=== PATIENT | female | born 1990 | race Two or more races ===

== ENCOUNTER 2024-10-13 18:49 | Inpatient (IN) | payer MEDICAID, OTHER ==
[~2024-10-13] VITALS: Ht 152.4 cm; Wt 56.4 kg
--- NOTE | 2024-10-13 19:04 | ED.PDOC ---
HPI Comments HPI: Poor Historian. 34-year-old female alcoholic presents to emergency department for evaluation midsternal chest heaviness nonradiating constant. She said this started after she stopped drinking alcohol at 1:00 a.m. this afternoon. She typically drinks 750 cc of hard liquor daily. Patient left a detox facility approximately a week ago after she relapsed five days into the program. Patient had associated nausea and vomiting yellow in color. Denies any other acute symptoms. Patient feels like she is going to have a seizure from withdrawal. VITALS: Temp: 98.4 F RR: 18 02 sat : 97 % on room air HR: 94 BP: 140/97 PMH: denies PSH: denies Social history: denies tobacco use, endorses heavy ETOH use, denies drug use Medications: denies Allergies: denies REVIEW OF SYSTEMS: CONSTITUTIONAL: Denies acute: fever, diaphoresis, chills, HEAD: Denies acute: headache, photophobia Eyes: Denies acute: Double vision, vision loss, eye pain, eye discharge. EARS: Denies acute: tinnitus, hearing loss, ear discharge, ear pain, THROAT: Denies acute: sore throat, swelling, difficulty swallowing , pain with swallowing, change in voice. NECK: Denies acute: neck pain, neck swelling, stiff neck. HEART: Denies acute : palpitations, LUNGS: Denies acute: SOB, wheezing, cough, hemoptysis ABDOMEN: Denies acute: abdominal pain, diarrhea, melena , hematemesis, hematochezia SKIN: Denies acute: rash, redness, lesions, itchiness. EXTREMITIES: Denies acute: calf pain, numbness, tingling, weakness, denies pain in extremity. Denies acute: Low back pain. Neuro: Denies acute: focal neurological deficit, motor or sensory focal neurological deficit, tremors, seizure like activity, confusion, dizziness, change in mental status, loss of bowel or bladder function, cauda equina like symptoms. : Denies acute: dysuria, hematuria, flank pain, increase in urinary frequency. PSYCH: Denies acute: hallucination, suicidal ideation, homicidal ideation. FEMALE: Denies acute: abnormal vaginal bleeding, foul odor, unusual discharge. PHYSICAL EXAM: General: Mild to moderate acute distress, awake and alert. Head: normocephalic, atraumatic. Neck: supple, trachea is midline, no swelling. Throat: Normal phonation. Eyes:, no erythema, no purulent discharge, no proptosis, no icterus. Heart: regular tachycardic, no significant murmur appreciated. Lungs: no apparent respiratory distress, Able to speak in full sentences. No wheezing, no rhonchi, no crackles. No stridors Clear to auscultation bilaterally. Abdomen: non tender to palpation, non distended, soft, no guarding, no rebound, + bowel sounds. Neuro: Awake, Alert, oriented to name, self, situation, follows commands GCS=15. Speech is normal. Skin: no petechia, no purpura, no cyanosis, non-pale, not jaundice. Lower extremities: --no - Pitting edema no deformity, no focal swelling, no calf TTP. Makes eye contact. moves all four extremities. Face: no apparent facial droop. Ambulating in the ED independently. 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 Was a procedure done?: No X-Ray, Labs, Meds, VS Vital Signs Date Time Temp Pulse Resp B/P (MAP) Pulse Ox O2 Delivery O2 Flow Rate FiO2 10/13/24 19:39 79 10/13/24 19:04 98.4 94 18 140/97 (111) 97 10/13/24 18:57 97 Lab Test 10/13/24 19:49 10/13/24 18:57 Range/Units Troponin I High Sensitivity < 3 L < 3 L </=34 ng/L White Blood Count 12.3 H 4.4-10.8 10^3/uL Red Blood Count 4.19 4.0-5.20 10^6/uL Hemoglobin 14.6 12.2-16.2 g/dL Hematocrit 43.5 36.0-46.0 % Mean Corpuscular Volume 103.9 H 80.0-100.0 fL Mean Corpuscular Hemoglobin 34.7 H 28.0-32.0 pg Mean Corpuscular Hemoglobin Concent 33.4 32.0-36.0 g/dL Red Cell Distribution Width 14.6 H 11.8-14.3 % Platelet Count 358 140-450 10^3/uL Mean Platelet Volume 8.4 6.9-10.8 fL Neutrophils (%) (Auto) 87.8 H 37.0-80.0 % Lymphocytes (%) (Auto) 5.9 L 10.0-50.0 % Monocytes (%) (Auto) 5.9 0.0-12.0 % Eosinophils (%) (Auto) 0.1 0.0-7.0 % Basophils (%) (Auto) 0.3 0.0-2.0 % Neutrophils # (Auto) 10.8 H 1.6-8.6 10 ^3/uL Lymphocytes # (Auto) 0.7 0.4-5.4 10 ^3/uL Monocytes # (Auto) 0.7 0-1.3 10 ^3/uL Eosinophils # (Auto) 0 0-0.8 10 ^3/uL Basophils # (Auto) 0 0-0.2 10 ^3/uL Nucleated Red Blood Cells 0.1 % Sodium Level 143 136-145 mmol/L Potassium Level 4.0 3.5-5.1 mmol/L Chloride Level 107 98-107 mmol/L Carbon Dioxide Level 21 20-31 mmol/L Anion Gap 15 5-15 Blood Urea Nitrogen 8 L 9-23 mg/dL Creatinine 0.77 0.550-1.02 mg/dL Glomerular Filtration Rate Calc 105 >90 mL/min BUN/Creatinine Ratio 10.4 10.0-20.0 Serum Glucose 135 H 74-106 mg/dL Lactic Acid Level 2.5 *H 0.4-2.0 mmol/L Calcium Level 9.9 8.7-10.4 mg/dL Magnesium Level 2.0 1.6-2.6 mg/dL Total Bilirubin 0.4 0.2-1.0 mg/dL Aspartate Amino Transferase (AST) 84 H 13-40 U/L Alanine Aminotransferase (ALT) 185 H 7-40 U/L Alkaline Phosphatase 109 46-116 U/L Total Protein 8.0 5.7-8.2 g/dL Albumin 5.0 H 3.2-4.8 g/dL Lipase 45 12-53 U/L Beta HCG, Quantitative 1.4 L 1.5-4.2 mIU/mL Plasma/Serum Blood Alcohol 122.6 H <10 mg/dL Current Medications Medications (Trade) Dose Ordered Sig/Marian Route Start Time Stop Time Status Last Admin Sodium Chloride 1,000 ml @ 1,000 mls/hr Q1H ONCE IV 10/13/24 19:15 10/13/24 20:14 DC 10/13/24 19:15 Lorazepam (Ativan Inj) 1 mg ONCE ONCE IV 10/13/24 19:15 10/13/24 19:16 DC 10/13/24 20:59 Ondansetron HCl (Zofran) 8 mg ONCE ONCE IV 10/13/24 19:15 10/13/24 19:16 DC 10/13/24 21:03 [place] [id number] Ph: [phone] DIAGNOSTIC IMAGING Diagnostic Imaging Report : [id number] Signed PATIENT: GALEN GARCIA MACCT: [id number] UNIT: [id number] : 1990 LOC: ER ROOM / BED: / AGE / SEX: 34 / F ADM STATUS: REG ER SERVICE 52 ORDERING PHYSICIAN: FAN CATHERINE DO PROCEDURE(s): CXRP - CHEST PORTABLE REASON: CP ORDER NUMBER(s): [id number], ACCESSION NUMBER(s): [id number] CHEST RADIOGRAPH Indication: CP Technique: Single frontal view of the chest was obtained Comparison: None FINDINGS: Lines and Tubes: None Lungs: No focal consolidation. Pleura: No effusion. No pneumothorax. Cardiomediastinal contours: Unremarkable Bones: No acute osseous abnormality. IMPRESSION: No acute cardiopulmonary disease. ATED BY: LAUREN CHO DO DICTATED DATE/TIME: 10/13/241927 SIGNED BY: LAUREN CHO DO SIGNED DATE/TIME: 10/13/241927 CC: Patient Education/Counseling: Diagnosis, Treatment Family Education/Counseling: No Family Present Comments MDM: Patient presented with the above HPI.----- ETOH abuse -workup was initiated. patient was found with the above mentioned diagnosis. the following medications were ordered: Zofran, Ativan, IV fluids, the following tests were ordered: blood alcohol, beta HCG, magnesium, lipase, lactic acid, drug screen, EKG x 3, troponin x3, UA, CBC, CMP, chest x-ray, Patient ED course and VS have been stabilized. Patient has been reassessed in the ED and remained in a stable condition. Patient has been observed in the ED adequate length of time to insure improvement/stability. Escalation of care considered: Consideration of escalation to observation or admission. patient was ADMITTED to the medicine team for further evaluation and treatment of their presentation. All the reports of any imaging studies that were ordered by myself were reviewed by myself. Departure 1 Departure Time of Disposition: 20:10 Impression: Primary Impression: Chest pain Additional Impressions: Alcohol abuse Nausea & vomiting T wave inversion in EKG Abnormal EKG Disposition: ADMITTED INPATIENT Admit to: Tele Condition: Guarded Discharged With: Self Heart Score Heart Score: Heart Score Response (Comments) Value History Slightly Suspicious 0 Age <45 0 Risk Factors No known risk factors 0 Total 0 I personally scribed for FAN CATHERINE DO ([email or web address]) on 10/13/24 at 19:04. Electronically submitted by Vinnie Verma ([email or web address]). I personally scribed for FAN CATHERINE DO ([email or web address]) on 10/13/24 at 20:35. Electronically submitted by Vinnie WYLIE). FAN CATHERINE DO Oct 13, 2024 19:04
[2024-10-13] MEDS: SODIUM CHLORIDE 0.9% 1,000 ML IV ONE (19:15)
[2024-10-13 19:21] LABS: Basophils # (auto) 0 10 ^3/uL (0-0.2); Basophils % (auto) 0.3 % (0.0-2.0); Eosinophils # (auto) 0 10 ^3/uL (0-0.8); Eosinophils % (auto) 0.1 % (0.0-7.0); Hematocrit 43.5 % (36.0-46.0); Hemoglobin 14.6 g/dL (12.2-16.2); Lymphocytes # (auto) 0.7 10 ^3/uL (0.4-5.4); Lymphocytes % (auto) 5.9 % (10.0-50.0); Mean Corpuscular Hemoglobin 34.7 pg (28.0-32.0); Mean Corpuscular Hgb Conc. 33.4 g/dL (32.0-36.0); Mean Corpuscular Volume 103.9 fL (80.0-100.0); Monocytes # (auto) 0.7 10 ^3/uL (0-1.3); Monocytes % (auto) 5.9 % (0.0-12.0); Neutrophils # (auto) 10.8 10 ^3/uL (1.6-8.6); Neutrophils % (auto) 87.8 % (37.0-80.0); Nucleated Red Blood Cells % 0.1 %; Platelet Count (auto) 358 10^3/uL (140-450); Red Blood Cells 4.19 10^6/uL (4.0-5.20); Red Cell Distribution Width 14.6 % (11.8-14.3); White Blood Cell 12.3 10^3/uL (4.4-10.8)
--- NOTE | 2024-10-13 19:30 | DVH ---
CHEST RADIOGRAPH Indication: CP Technique: Single frontal view of the chest was obtained Comparison: None FINDINGS: Lines and Tubes: None Lungs: No focal consolidation. Pleura: No effusion. No pneumothorax. Cardiomediastinal contours: Unremarkable Bones: No acute osseous abnormality. IMPRESSION: No acute cardiopulmonary disease.
[2024-10-13 19:33] LABS: Alanine Aminotransferase 185 U/L (7-40); Alkaline Phosphatase 109 U/L (46-116); Anion Gap 15 (5-15); Aspartate Aminotransferase 84 U/L (13-40); BUN/Creatinine Ratio 10.4 (10.0-20.0); Bilirubin, Total 0.4 mg/dL (0.2-1.0); Blood Urea Nitrogen 8 mg/dL (9-23); Calcium 9.9 mg/dL (8.7-10.4); Carbon Dioxide 21 mmol/L (20-31); Chloride 107 mmol/L (98-107); Glucose 135 mg/dL (74-106); Sodium 143 mmol/L (136-145)
[2024-10-13 19:36] LABS: Lactic Acid w/Reflex 2.5 mmol/L (0.4-2.0)
[2024-10-13] MEDS: LORazepam 2MG/ML-1ML VIAL IV ONE (20:59)
[2024-10-13] MEDS: ONDANSETRON HCL 4 MG/2 ML VIAL IV ONE (21:03)
[2024-10-13 21:10] VITALS: PULSE 94; RESP 18; O2SAT 97
[2024-10-14 03:11] LABS: Urine Bacteria FEW /hpf (None Seen); Urine Blood 3+ /uL (Negative); Urine Clarity Clear (Clear); Urine Color Light-Yellow (Yellow); Urine Mucus FEW (None Seen); Urine Protein, UAD TRACE (Negative); Urine Specific Gravity 1.017 (1.001-1.035); Urine Urobilinogen Normal (Negative); Urine WBC 2 /hpf (0 - 5); Urine pH 6.5 (5.0-9.0)
[2024-10-14 03:29] LABS: Amphetamine Screen, Urine Neg (NEGATIVE); Barbiturate Scree,Urine Neg (NEGATIVE); Benzodiazephine Screen, Urine Neg (NEGATIVE); Cannabinoid Screen, Urine Neg (NEGATIVE); Cocaine Screen, Urine Neg (NEGATIVE); Opiate Scree,Urine Neg (NEGATIVE); Phencyclidine Screen, Urine Neg (NEGATIVE)
[2024-10-14] MEDS: LORazepam 2MG/ML-1ML VIAL IV ONE (04:56)
[2024-10-14] MEDS: SODIUM CHLORIDE 0.9% 1,000 ML IV ONE (04:59)
[2024-10-14] MEDS ORDERED: DOCUSATE SOD 100 MG CAP PO PRN (05:00)
[2024-10-14] MEDS ORDERED: IBUPROFEN 600 MG TAB PO PRN (05:00)
[2024-10-14] MEDS ORDERED: NITROGLYCERIN 0.4 MG SL TAB SL PRN (05:00)
[2024-10-14] MEDS ORDERED: MORPHINE SULFATE INJ 2 MG/ml SYRG IV PRN ×2 (05:00)
[2024-10-14] MEDS ORDERED: HYDROcodone-ACET 5/325MG TAB PO PRN (05:00)
--- NOTE | 2024-10-14 05:06 | DVHHP2 ---
History of Present Illness Reason for Visit: Chest pain History of Present Illness Patient is a 34-year-old female with past medical history of EtOH abuse who presented to [facility] ED with complaint of chest pain. Patient reports chest heaviness, nonradiating, constant, associated nausea, vomiting, shortness of breaths, started after she stopped drinking alcohol this afternoon. She reports drinking 750 cc of hard liquid daily.Patient left a detox facility approximately a week ago after she relapsed five days into the program. Patient was seen and evaluated in the ED, laboratory data shows WBC 12.3, platelets 358, sodium 143, potassium 4.0, BUN 8, creatinine 0.77, glucose 135, albumin 5.0, troponin 3, lactic acid 2.5 trending down to 1.1, lipase 45, albumin 5.0, AST 84, ALT 185, blood pressure 140/97, heart rate 83, temperature 97.9 F, O2 saturation 96% on room air. Please see medication orders section in the computer. On my assessment, patient denied chest pain at this moment, no headache, no dizziness, no shortness of breath, no nausea, no vomiting, no fever, no chills. Patient was admitted for further evaluation and medical management. Past Medical History EtOH abuse Past Surgical History Denies all surgeries Family History Reviewed, noncontributory to the management of this case. Past Social History Patient lives at home, drinks alcohol heavily, denies smoking or illicit drugs abuse. Review of Systems Constitutional: No: Fever, Chills, Sweats, Weakness, Malaise, Other Eyes: No: Pain, Vision change, Conjunctivae inflammation, Eyelid inflammation, Other, Redness ENT: No: Ear pain, Ear discharge, Nose pain, Nose discharge, Nose congestion, Mouth pain, Mouth swelling, Throat pain, Throat swelling, Other Respiratory: Shortness of breath; No: Cough, Dry, SOB with excertion, Wheezing, Hemoptysis, Pleuritic Pain, Sputum, Wheezing, Other Cardiovascular: Chest Pain; No: Palpitations, Orthopnea, Paroxysmal Noc. Dyspnea, Edema, Lt Headedness, Other Gastrointestinal: Nausea, Vomiting; No: Abdominal Pain, Diarrhea, Constipation, Melena, Hematochezia, Other Genitourinary: No Dysuria, No Frequency, No Incontinence, No Hematuria, No Retention, No Other Musculoskeletal: No: other, neck pain, shoulder pain, arm pain, back pain, hand pain, leg pain, foot pain Skin: No: Rash, Lesions, Jaundice, Bruising, Other Neurological: No: Weakness, Numbness, Incoordination, Change in speech, Confusion, Seizures, Other Allergies: Coded Allergies: No Known Drug Allergy (Verified Allergy, Unknown, 10/13/24) Exam Vital Signs Vital Signs Date Time Temp Pulse Resp B/P (MAP) Pulse Ox O2 Delivery O2 Flow Rate FiO2 10/14/24 03:00 97.9 67 14 103/69 (80) 95 97.9 10/13/24 21:10 Room Air* 0 21 General Appearance: Alert, Oriented X3, Cooperative, No acute distress HEENT: Atraumatic, PERRLA, EOMI, Mucous membr. moist/pink Respiratory: Clear to auscultation, Normal air movement Cardiovascular: Regular rate, Normal S1, Normal S2, No murmurs Abdominal: Normal bowel sounds, Soft, No tenderness, No hepatospenomegaly, No masses Extremities: No clubbing, No cyanosis, No edema, Normal pulses, No tenderness/swelling Skin: No rashes, No breakdown, No significant lesion Neuro: Normal gait, Normal speech, Strength at 5/5 X4 ext, Normal tone, Sensation intact, Cranial nerves 3-12 NL, Reflexes 2+ Psych/Mental Status: Mental status NL, Mood NL Labs/Xrays Labs Test 10/14/24 03:00 10/14/24 01:02 10/13/24 19:49 10/13/24 18:57 Range/Units Urine Color Light-yellow Yellow Urine Clarity Clear Clear Urine pH 6.5 5.0-9.0 Urine Specific [place] 1.017 1.001-1.035 Urine Protein Trace H Negative Urine Ketones Trace Negative Urine Blood 3+ H Negative /uL Urine Nitrite Negative Negative Urine Bilirubin Negative Negative Urine Urobilinogen Normal Negative mg/dL Urine Leukocyte Esterase Negative Negative /uL Urine RBC 1 0 - 4 /hpf Urine WBC 2 0 - 5 /hpf Urine Squamous Epithelial Cells Few <5 /hpf Urine Bacteria Few H None Seen /hpf Urine Mucus Few None Seen Urine Glucose Normal Normal mg/dL Urine Opiates Screen Neg NEGATIVE Urine Fentanyl Screen Neg NEGATIVE Urine Barbiturates Screen Neg NEGATIVE Urine Phencyclidine Screen Neg NEGATIVE Urine Amphetamines Screen Neg NEGATIVE Urine Benzodiazepines Screen Neg NEGATIVE Urine Cocaine Screen Neg NEGATIVE Urine Cannabinoids Screen Neg NEGATIVE Lactic Acid Level 1.1 0.4-2.0 mmol/L Troponin I High Sensitivity < 3 L </=34 ng/L White Blood Count 12.3 H 4.4-10.8 10^3/uL Red Blood Count 4.19 4.0-5.20 10^6/uL Hemoglobin 14.6 12.2-16.2 g/dL Hematocrit 43.5 36.0-46.0 % Mean Corpuscular Volume 103.9 H 80.0-100.0 fL Mean Corpuscular Hemoglobin 34.7 H 28.0-32.0 pg Mean Corpuscular Hemoglobin Concent 33.4 32.0-36.0 g/dL Red Cell Distribution Width 14.6 H 11.8-14.3 % Platelet Count 358 140-450 10^3/uL Mean Platelet Volume 8.4 6.9-10.8 fL Neutrophils (%) (Auto) 87.8 H 37.0-80.0 % Lymphocytes (%) (Auto) 5.9 L 10.0-50.0 % Monocytes (%) (Auto) 5.9 0.0-12.0 % Eosinophils (%) (Auto) 0.1 0.0-7.0 % Basophils (%) (Auto) 0.3 0.0-2.0 % Neutrophils # (Auto) 10.8 H 1.6-8.6 10 ^3/uL Lymphocytes # (Auto) 0.7 0.4-5.4 10 ^3/uL Monocytes # (Auto) 0.7 0-1.3 10 ^3/uL Eosinophils # (Auto) 0 0-0.8 10 ^3/uL Basophils # (Auto) 0 0-0.2 10 ^3/uL Nucleated Red Blood Cells 0.1 % Sodium Level 143 136-145 mmol/L Potassium Level 4.0 3.5-5.1 mmol/L Chloride Level 107 98-107 mmol/L Carbon Dioxide Level 21 20-31 mmol/L Anion Gap 15 5-15 Blood Urea Nitrogen 8 L 9-23 mg/dL Creatinine 0.77 0.550-1.02 mg/dL Glomerular Filtration Rate Calc 105 >90 mL/min BUN/Creatinine Ratio 10.4 10.0-20.0 Serum Glucose 135 H 74-106 mg/dL Calcium Level 9.9 8.7-10.4 mg/dL Magnesium Level 2.0 1.6-2.6 mg/dL Total Bilirubin 0.4 0.2-1.0 mg/dL Aspartate Amino Transferase (AST) 84 H 13-40 U/L Alanine Aminotransferase (ALT) 185 H 7-40 U/L Alkaline Phosphatase 109 46-116 U/L Total Protein 8.0 5.7-8.2 g/dL Albumin 5.0 H 3.2-4.8 g/dL Lipase 45 12-53 U/L Beta HCG, Quantitative 1.4 L 1.5-4.2 mIU/mL Plasma/Serum Blood Alcohol 122.6 H <10 mg/dL PATIENT: GALEN GARCIA MACCT: [id number] UNIT: [id number] : 1990 LOC: ER ROOM / BED: / AGE / SEX: 34 / F ADM STATUS: REG ER SERVICE 52 ORDERING PHYSICIAN: FAN CATHERINE DO PROCEDURE(s): CXRP - CHEST PORTABLE REASON: CP ORDER NUMBER(s): [id number], ACCESSION NUMBER(s): [id number] CHEST RADIOGRAPH Indication: CP Technique: Single frontal view of the chest was obtained Comparison: None FINDINGS: Lines and Tubes: None Lungs: No focal consolidation. Pleura: No effusion. No pneumothorax. Cardiomediastinal contours: Unremarkable Bones: No acute osseous abnormality. IMPRESSION: No acute cardiopulmonary disease. Assessment/Plan Assessment/Plan Chest pain Alcohol abuse Nausea & vomiting Elevated liver enzymes Plan 1. Admit to telemetry unit 2. Breathing treatment 3. Pain control management 4. Management of fluids and electrolytes 5. Consultation for hospitalist 6. Diagnostic tests chest x-ray 7. DVT prophylaxis on SCDs 8. Repeat labs CBC, CMP in a.m. 9. Continue with current medical management 10. Treatment plan discussed with patient and RN. Patient verbalized understanding. Plan discussed with: Patient, Other (RN) My Orders Orders - MANGO EMMANUEL DNP Procedure Category Date Status Time Complete Blood Count LAB 10/14/24 Verified 04:46 Comprehensive LAB 10/14/24 Verified Metabolic Panel 04:46 Lorazepam 2mg/Ml Inj PHA 10/14/24 Verified (Ativan Inj) 05:00 Thiamine Inj PHA 10/14/24 Verified 10:00 B-Complex W/ C & PHA 10/14/24 Verified Folic Tablet 10:00 Ibuprofen Tablet PHA 10/14/24 Verified (Motrin Tablet) 05:00 Admit ADMIT 10/14/24 Verified 04:46 Allergies BRIANNA 10/14/24 Verified 04:46 Code Status CODE 10/14/24 Verified 04:46 Sodium Chloride Lock PHA 10/14/24 Verified (Saline Lock Ns) 06:00 Oxygen Per Hour RT 10/14/24 Verified 04:46 Hydrocodone-Acet PHA 10/14/24 Verified 5/325mg Tab (Axis 05:00 Ondansetron Hcl PHA 10/14/24 Verified (Zofran) 05:00 Docusate Sodium PHA 10/14/24 Verified Capsule (Colace 05:00 Fall Risk Precautions BRIANNA 10/14/[address] 04:46 Complete Blood Count LAB 10/15/24 Verified 04:00 Comprehensive LAB 10/15/24 Verified Metabolic Panel 04:00 Cardiac DIET 10/14/24 Verified Diet-2gna,Lofat,Lochol Breakfast Problem List: (1) Chest pain (2) Alcohol abuse (3) Nausea & vomiting (4) Elevated liver enzymes Date of Service: Oct 14, 2024 Billing Provider: MANGO EMMANUEL DNP Common Visit Codes: [id number] INP/OBS CARE (HIGH) MANGO EMMANUEL DNP Oct 14, 2024 05:06
[2024-10-14 05:54] LABS: Basophils # (auto) 0.1 10 ^3/uL (0-0.2); Basophils % (auto) 0.6 % (0.0-2.0); Eosinophils # (auto) 0 10 ^3/uL (0-0.8); Eosinophils % (auto) 0.3 % (0.0-7.0); Hemoglobin 12.7 g/dL (12.2-16.2); Lymphocytes % (auto) 11.6 % (10.0-50.0); Mean Corpuscular Hgb Conc. 34.4 g/dL (32.0-36.0); Mean Corpuscular Volume 104.6 fL (80.0-100.0); Monocytes % (auto) 11.3 % (0.0-12.0); Neutrophils # (auto) 6.9 10 ^3/uL (1.6-8.6); Neutrophils % (auto) 76.2 % (37.0-80.0); Platelet Count (auto) 290 10^3/uL (140-450); Red Blood Cells 3.54 10^6/uL (4.0-5.20); Red Cell Distribution Width 15.1 % (11.8-14.3); White Blood Cell 9.1 10^3/uL (4.4-10.8)
[2024-10-14] MEDS: SODIUM CHLOR 0.9% PF (SALINE LOCK) 10ML VIAL/SYR IV SCH (06:01)
[2024-10-14 06:08] LABS: Albumin 4.1 g/dL (3.2-4.8); Alkaline Phosphatase 83 U/L (46-116); Anion Gap 10 (5-15); BUN/Creatinine Ratio 9.8 (10.0-20.0); Calcium 9.1 mg/dL (8.7-10.4); Carbon Dioxide 22 mmol/L (20-31); Glucose 101 mg/dL (74-106); Potassium 3.5 mmol/L (3.5-5.1); Sodium 141 mmol/L (136-145)
[2024-10-14 06:09] LABS: Bilirubin, Total 0.9 mg/dL (0.2-1.0); Total Protein 6.9 g/dL (5.7-8.2)
[2024-10-14 06:11] LABS: Alanine Aminotransferase 135 U/L (7-40); Aspartate Aminotransferase 54 U/L (13-40); Blood Urea Nitrogen 6 mg/dL (9-23); Chloride 109 mmol/L (98-107)
[2024-10-14 07:30] VITALS: PULSE 89; RESP 16; O2SAT 97
[2024-10-14] MEDS: LORazepam 2MG/ML-1ML VIAL IV PRN (08:20)
[2024-10-14] MEDS: B-COMPLEX W/ C & FOLIC ACID(NEPHROVITE TAB) PO SCH (10:23)
[2024-10-14] MEDS: THIAMINE 100mg/ml INJ (200mg/2ml VIAL) IV SCH (10:23)
[2024-10-14 13:00] VITALS: BP 120/80; PULSE 67; RESP 14; TEMP 98.2; O2SAT 97
--- NOTE | 2024-10-14 13:10 | DVHPN2 ---
Subjective The patient is seen and examined at bedside. Still complain of chest discomfort. Reviewed: Care Plan, H&P, Labs, Medications, Previous Orders, Radiology Changes from previous H/P or p: No Changes Eyes: No Pain, No Vision change, No Conjunctivae inflammation, No Eyelid inflammation, No Other, No Redness ENT: No Ear pain, No Ear discharge, No Nose pain, No Nose discharge, No Nose congestion, No Mouth pain, No Mouth swelling, No Throat pain, No Throat swelling, No Other Cardiovascular: Chest Pain; No Palpitations, No Orthopnea, No Paroxysmal Noc. Dyspnea, No Edema, No Lt Headedness, No Other Respiratory: No Cough, No Dry; Shortness of breath; No SOB with excertion, No Wheezing, No Hemoptysis, No Pleuritic Pain, No Sputum, No Other Gastrointestinal: Nausea, Vomiting; No Abdominal Pain, No Diarrhea, No Constipation, No Melena, No Hematochezia, No Other Genitourinary: No Dysuria, No Frequency, No Incontinence, No Hematuria, No Retention, No Other Musculoskeletal: No other, No neck pain, No shoulder pain, No arm pain, No back pain, No hand pain, No leg pain, No foot pain Skin: No Rash, No Lesions, No Jaundice, No Bruising, No Other Objective Vitals Vital Signs Date Time Temp Pulse Resp B/P (MAP) Pulse Ox O2 Delivery O2 Flow Rate FiO2 10/14/24 10:00 58 16 111/71 (84) 95 10/14/24 07:30 Room Air* 0 21 10/14/24 03:00 97.9 97.9 Intake/Output Intake and Output 10/14/24 07:00 Intake Total 2000 ml Balance 2000 ml Intake IV Total 2000 ml General Appearance: Alert, Oriented X3, Cooperative, No acute distress HEENT: Atraumatic, PERRLA, EOMI, Mucous membr. moist/pink Neck: Supple Lungs: Clear to auscultation, Normal air movement Cardiovascular: Regular rate, Normal S1, Normal S2, No murmurs, Gallops, Rubs Abdomen: Normal bowel sounds, Soft, No tenderness Extremities: Normal pulses Neuro: Cranial nerves 3-12 NL Medications Current Medications Medications Dose Ordered Sig/Marian Route Start Time Stop Time Status Last Admin Dose Admin Lorazepam 1 mg Q8HP PRN IV 10/14/24 05:00 10/14/24 08:20 1 MG Thiamine HCl 100 mg DAILY IV 10/14/24 10:00 10/14/24 10:23 100 MG Multivit/Ca Carb/ B Cmplx/FA/Prenat 1 tab DAILY PO 10/14/24 10:00 10/14/24 10:23 1 TAB Ibuprofen 600 mg Q6HP PRN PO 10/14/24 05:00 Sodium Chloride 10 ml Q8HR IV 10/14/24 06:00 10/14/24 06:01 10 ML Acetaminophen/ Hydrocodone Bitart 1 tab Q4HP PRN PO 10/14/24 05:00 Ondansetron HCl 4 mg Q4HP PRN IV 10/14/24 05:00 Docusate Sodium 100 mg BIDPRN PRN PO 10/14/24 05:00 Morphine Sulfate 2 mg Q4HPRN PRN IV 10/14/24 05:00 Nitroglycerin 0.4 mg Q5MINP PRN SL 10/14/24 05:00 Morphine Sulfate 2 mg Q30M PRN IV 10/14/24 05:00 Laboratory Results Laboratory Tests 10/14/24 05:27 Chemistry Test 10/13/24 18:57 10/14/24 05:27 Albumin 5.0 g/dL (3.2-4.8) H 4.1 g/dL (3.2-4.8) Calcium Level 9.9 mg/dL (8.7-10.4) 9.1 mg/dL (8.7-10.4) Magnesium Level 2.0 mg/dL (1.6-2.6) Total Protein 8.0 g/dL (5.7-8.2) 6.9 g/dL (5.7-8.2) Lipid panel Test 10/13/24 18:57 Lipase 45 U/L (12-53) LFT Test 10/13/24 18:57 10/14/24 05:27 Alanine Aminotransferase (ALT) 185 U/L (7-40) H 135 U/L (7-40) H Alkaline Phosphatase 109 U/L (46-116) 83 U/L (46-116) Aspartate Amino Transferase (AST) 84 U/L (13-40) H 54 U/L (13-40) H Total Bilirubin 0.4 mg/dL (0.2-1.0) 0.9 mg/dL (0.2-1.0) Urinalysis Test 10/14/24 03:00 Urine Color Light-yellow (Yellow) Urine Clarity Clear (Clear) Urine pH 6.5 (5.0-9.0) Urine Specific [place] 1.017 (1.001-1.035) Urine Protein Trace (Negative) H Urine Ketones Trace (Negative) Urine Blood 3+ /uL (Negative) H Urine Nitrite Negative (Negative) Urine Bilirubin Negative (Negative) Urine Urobilinogen Normal mg/dL (Negative) Urine Leukocyte Esterase Negative /uL (Negative) Urine RBC 1 /hpf (0 - 4) Urine WBC 2 /hpf (0 - 5) Urine Squamous Epithelial Cells Few /hpf (<5) Urine Bacteria Few /hpf (None Seen) H Urine Mucus Few (None Seen) Urine Glucose Normal mg/dL (Normal) Labs and/or images reviewed: Labs reviewed by me Assessment/Plan Assessment/Plan Chest pain Alcohol abuse Nausea & vomiting Elevated liver enzyme Plan: Continuing current management. Continuing with Zofran p.r.n. for nausea or vomiting. We will monitor liver function tests. Advised the patient to stop drinking alcohol. Advised to join alcohol anonymous as outpatient. Her chest pain probable secondary to intractable nausea and vomiting and retching. No further workup. EKG remained unremarkable and troponin level is negative. Discharge planning when nausea and vomiting improved. Continuing IV fluid for hydration. Continuing banana bag. Plan discussed with: Patient Date of Service: Oct 14, 2024 Billing Provider: LETICIA IRVIN MD Common Visit Codes: [id number] INP/OBS CARE(HIGH) LETICIA IRVIN MD Oct 14, 2024 13:10
[2024-10-14 17:00] VITALS: BP 126/82; PULSE 69; RESP 16; TEMP 98.2; O2SAT 97
[2024-10-14 20:00] VITALS: PULSE 61; PULSE 66; RESP 16
[2024-10-14 22:00] VITALS: BP 125/76; PULSE 55; RESP 18; TEMP 98.4; O2SAT 97
[2024-10-15 01:00] VITALS: BP 125/58; PULSE 62; RESP 17; TEMP 98.2; O2SAT 97
[2024-10-15] MEDS: ONDANSETRON HCL 4 MG/2 ML VIAL IV PRN (03:52)
[2024-10-15 05:00] VITALS: BP 107/78; PULSE 73; RESP 17; TEMP 98.3; O2SAT 97
[2024-10-15 06:30] LABS: Basophils # (auto) 0 10 ^3/uL (0-0.2); Basophils % (auto) 0.7 % (0.0-2.0); Eosinophils # (auto) 0.1 10 ^3/uL (0-0.8); Eosinophils % (auto) 2.3 % (0.0-7.0); Hematocrit 38.7 % (36.0-46.0); Hemoglobin 13.2 g/dL (12.2-16.2); Lymphocytes # (auto) 1.2 10 ^3/uL (0.4-5.4); Lymphocytes % (auto) 19.2 % (10.0-50.0); Mean Corpuscular Hemoglobin 35.6 pg (28.0-32.0); Mean Corpuscular Hgb Conc. 34.2 g/dL (32.0-36.0); Mean Corpuscular Volume 103.9 fL (80.0-100.0); Monocytes # (auto) 0.9 10 ^3/uL (0-1.3); Monocytes % (auto) 13.9 % (0.0-12.0); Neutrophils # (auto) 3.9 10 ^3/uL (1.6-8.6); Neutrophils % (auto) 63.9 % (37.0-80.0); Nucleated Red Blood Cells % 0.1 %; Platelet Count (auto) 323 10^3/uL (140-450); Red Blood Cells 3.72 10^6/uL (4.0-5.20); Red Cell Distribution Width 14.2 % (11.8-14.3); White Blood Cell 6.2 10^3/uL (4.4-10.8)
[2024-10-15 06:52] LABS: Albumin 4.2 g/dL (3.2-4.8); Alkaline Phosphatase 87 U/L (46-116); Anion Gap 9 (5-15); BUN/Creatinine Ratio 11.6 (10.0-20.0); Calcium 9.6 mg/dL (8.7-10.4); Carbon Dioxide 23 mmol/L (20-31); Chloride 106 mmol/L (98-107); Glucose 104 mg/dL (74-106); Potassium 3.8 mmol/L (3.5-5.1); Sodium 138 mmol/L (136-145)
[2024-10-15 06:53] LABS: Alanine Aminotransferase 127 U/L (7-40); Aspartate Aminotransferase 67 U/L (13-40); Bilirubin, Total 0.6 mg/dL (0.2-1.0); Blood Urea Nitrogen 8 mg/dL (9-23); Total Protein 6.9 g/dL (5.7-8.2)
[2024-10-15 07:48] VITALS: PULSE 61; RESP 16
[2024-10-15 08:00] VITALS: PULSE 51
[2024-10-15 09:00] VITALS: BP 114/67; PULSE 65; RESP 18; TEMP 98.5; O2SAT 97
--- NOTE | 2024-10-15 10:45 | DVHPN2 ---
Subjective The patient is seen and examined at bedside. Still complain of chest discomfort. Reviewed: Care Plan, H&P, Labs, Medications, Previous Orders, Radiology Changes from previous H/P or p: No Changes Eyes: No Pain, No Vision change, No Conjunctivae inflammation, No Eyelid inflammation, No Other, No Redness ENT: No Ear pain, No Ear discharge, No Nose pain, No Nose discharge, No Nose congestion, No Mouth pain, No Mouth swelling, No Throat pain, No Throat swelling, No Other Cardiovascular: Chest Pain; No Palpitations, No Orthopnea, No Paroxysmal Noc. Dyspnea, No Edema, No Lt Headedness, No Other Respiratory: No Cough, No Dry; Shortness of breath; No SOB with excertion, No Wheezing, No Hemoptysis, No Pleuritic Pain, No Sputum, No Other Gastrointestinal: Nausea, Vomiting; No Abdominal Pain, No Diarrhea, No Constipation, No Melena, No Hematochezia, No Other Genitourinary: No Dysuria, No Frequency, No Incontinence, No Hematuria, No Retention, No Other Musculoskeletal: No other, No neck pain, No shoulder pain, No arm pain, No back pain, No hand pain, No leg pain, No foot pain Skin: No Rash, No Lesions, No Jaundice, No Bruising, No Other Objective Vitals Vital Signs Date Time Temp Pulse Resp B/P (MAP) Pulse Ox O2 Delivery O2 Flow Rate FiO2 10/15/24 09:00 98.5 65 18 114/67 (83) 97 98.5 10/15/24 07:48 Room Air* 0 21 Intake/Output Intake and Output 10/15/24 07:00 Intake Total 995 ml Balance 995 ml Intake Oral 995 ml # Voids 6 # Bowel Movements 2 General Appearance: Alert, Oriented X3, Cooperative, No acute distress HEENT: Atraumatic, PERRLA, EOMI, Mucous membr. moist/pink Neck: Supple Lungs: Clear to auscultation, Normal air movement Cardiovascular: Regular rate, Normal S1, Normal S2, No murmurs, Gallops, Rubs Abdomen: Normal bowel sounds, Soft, No tenderness Extremities: Normal pulses Neuro: Cranial nerves 3-12 NL Medications Current Medications Medications Dose Ordered Sig/Marian Route Start Time Stop Time Status Last Admin Dose Admin Lorazepam 1 mg Q8HP PRN IV 10/14/24 05:00 10/15/24 03:52 1 MG Thiamine HCl 100 mg DAILY IV 10/14/24 10:00 10/15/24 08:44 100 MG Multivit/Ca Carb/ B Cmplx/FA/Prenat 1 tab DAILY PO 10/14/24 10:00 10/15/24 08:44 1 TAB Ibuprofen 600 mg Q6HP PRN PO 10/14/24 05:00 Sodium Chloride 10 ml Q8HR IV 10/14/24 06:00 10/15/24 06:11 10 ML Acetaminophen/ Hydrocodone Bitart 1 tab Q4HP PRN PO 10/14/24 05:00 Ondansetron HCl 4 mg Q4HP PRN IV 10/14/24 05:00 10/15/24 03:52 4 MG Docusate Sodium 100 mg BIDPRN PRN PO 10/14/24 05:00 Morphine Sulfate 2 mg Q4HPRN PRN IV 10/14/24 05:00 Nitroglycerin 0.4 mg Q5MINP PRN SL 10/14/24 05:00 Morphine Sulfate 2 mg Q30M PRN IV 10/14/24 05:00 Laboratory Results Laboratory Tests 10/15/24 05:49 Chemistry Test 10/15/24 05:49 Albumin 4.2 g/dL (3.2-4.8) Calcium Level 9.6 mg/dL (8.7-10.4) Total Protein 6.9 g/dL (5.7-8.2) LFT Test 10/15/24 05:49 Alanine Aminotransferase (ALT) 127 U/L (7-40) H Alkaline Phosphatase 87 U/L (46-116) Aspartate Amino Transferase (AST) 67 U/L (13-40) H Total Bilirubin 0.6 mg/dL (0.2-1.0) Urinalysis Test 10/14/24 03:00 Urine Color Light-yellow (Yellow) Urine Clarity Clear (Clear) Urine pH 6.5 (5.0-9.0) Urine Specific [place] 1.017 (1.001-1.035) Urine Protein Trace (Negative) H Urine Ketones Trace (Negative) Urine Blood 3+ /uL (Negative) H Urine Nitrite Negative (Negative) Urine Bilirubin Negative (Negative) Urine Urobilinogen Normal mg/dL (Negative) Urine Leukocyte Esterase Negative /uL (Negative) Urine RBC 1 /hpf (0 - 4) Urine WBC 2 /hpf (0 - 5) Urine Squamous Epithelial Cells Few /hpf (<5) Urine Bacteria Few /hpf (None Seen) H Urine Mucus Few (None Seen) Urine Glucose Normal mg/dL (Normal) Assessment/Plan Assessment/Plan Chest pain Alcohol abuse Nausea & vomiting Elevated liver enzyme Plan: Continuing current management. Continuing with Zofran p.r.n. for nausea or vomiting. We will monitor liver function tests. Advised the patient to stop drinking alcohol. Advised to join alcohol anonymous as outpatient. Her chest pain probable secondary to intractable nausea and vomiting and retching. No further workup. EKG remained unremarkable and troponin level is negative. Discharge planning when nausea and vomiting improved. Continuing IV fluid for hydration. Continuing banana bag. LETICIA IRVIN MD Oct 15, 2024 10:44
--- NOTE | 2024-10-15 11:46 | DVHDS2 ---
Discharge Summary Date of Admission Oct 14, 2024 at 04:46 Date of Discharge: Oct 15, 2024 Admitting Diagnosis Chest pain Alcohol abuse Nausea & vomiting Elevated liver enzyme Labs/Diagnostic Data: Laboratory Results Test 10/15/24 05:49 10/14/24 03:00 10/14/24 01:02 10/13/24 19:49 White Blood Count 6.2 10^3/uL (4.4-10.8) Red Blood Count 3.72 10^6/uL (4.0-5.20) Hemoglobin 13.2 g/dL (12.2-16.2) Hematocrit 38.7 % (36.0-46.0) Mean Corpuscular Volume 103.9 fL (80.0-100.0) Mean Corpuscular Hemoglobin 35.6 pg (28.0-32.0) Mean Corpuscular Hemoglobin Concent 34.2 g/dL (32.0-36.0) Red Cell Distribution Width 14.2 % (11.8-14.3) Platelet Count 323 10^3/uL (140-450) Mean Platelet Volume 8.3 fL (6.9-10.8) Neutrophils (%) (Auto) 63.9 % (37.0-80.0) Lymphocytes (%) (Auto) 19.2 % (10.0-50.0) Monocytes (%) (Auto) 13.9 % (0.0-12.0) Eosinophils (%) (Auto) 2.3 % (0.0-7.0) Basophils (%) (Auto) 0.7 % (0.0-2.0) Neutrophils # (Auto) 3.9 10 ^3/uL (1.6-8.6) Lymphocytes # (Auto) 1.2 10 ^3/uL (0.4-5.4) Monocytes # (Auto) 0.9 10 ^3/uL (0-1.3) Eosinophils # (Auto) 0.1 10 ^3/uL (0-0.8) Basophils # (Auto) 0 10 ^3/uL (0-0.2) Nucleated Red Blood Cells 0.1 % Sodium Level 138 mmol/L (136-145) Potassium Level 3.8 mmol/L (3.5-5.1) Chloride Level 106 mmol/L (98-107) Carbon Dioxide Level 23 mmol/L (20-31) Anion Gap 9 (5-15) Blood Urea Nitrogen 8 mg/dL (9-23) Creatinine 0.69 mg/dL (0.550-1.02) Glomerular Filtration Rate Calc 118 mL/min (>90) BUN/Creatinine Ratio 11.6 (10.0-20.0) Serum Glucose 104 mg/dL (74-106) Calcium Level 9.6 mg/dL (8.7-10.4) Total Bilirubin 0.6 mg/dL (0.2-1.0) Aspartate Amino Transferase (AST) 67 U/L (13-40) Alanine Aminotransferase (ALT) 127 U/L (7-40) Alkaline Phosphatase 87 U/L (46-116) Total Protein 6.9 g/dL (5.7-8.2) Albumin 4.2 g/dL (3.2-4.8) Urine Color Light-yellow (Yellow) Urine Clarity Clear (Clear) Urine pH 6.5 (5.0-9.0) Urine Specific [place] 1.017 (1.001-1.035) Urine Protein Trace (Negative) Urine Ketones Trace (Negative) Urine Blood 3+ /uL (Negative) Urine Nitrite Negative (Negative) Urine Bilirubin Negative (Negative) Urine Urobilinogen Normal mg/dL (Negative) Urine Leukocyte Esterase Negative /uL (Negative) Urine RBC 1 /hpf (0 - 4) Urine WBC 2 /hpf (0 - 5) Urine Squamous Epithelial Cells Few /hpf (<5) Urine Bacteria Few /hpf (None Seen) Urine Mucus Few (None Seen) Urine Glucose Normal mg/dL (Normal) Urine Opiates Screen Neg (NEGATIVE) Urine Fentanyl Screen Neg (NEGATIVE) Urine Barbiturates Screen Neg (NEGATIVE) Urine Phencyclidine Screen Neg (NEGATIVE) Urine Amphetamines Screen Neg (NEGATIVE) Urine Benzodiazepines Screen Neg (NEGATIVE) Urine Cocaine Screen Neg (NEGATIVE) Urine Cannabinoids Screen Neg (NEGATIVE) Lactic Acid Level 1.1 mmol/L (0.4-2.0) Troponin I High Sensitivity < 3 ng/L (</=34) Test 10/13/24 18:57 Magnesium Level 2.0 mg/dL (1.6-2.6) Lipase 45 U/L (12-53) Beta HCG, Quantitative 1.4 mIU/mL (1.5-4.2) Plasma/Serum Blood Alcohol 122.6 mg/dL (<10) Other Laboratory Tests 10/15/24 05:49 Brief Hx & Hospital Course: This is a 34 years old female with past medical history of alcohol abuse came to emergency department because of chest pain. Patient reports chest heaviness, nonradiating, constant associated with nausea and vomiting. Her chest pain came after she vomited projectile at home after alcohol consumption. She drinks 750 mL of hard liquor daily. The patient just left a detox facility approximately one week ago and she relapsed five days into the program. The patient was found to have troponin level of three. Normal EKG. Lactic acid is 2.5 trending to 1.1. The patient intractable nausea and vomiting was treated with Zofran and is improved today she able to tolerate diet and keep her food down. The patient's lipase is normal. The patient was advice to stop alcohol. Advised her to go back to rehab. Today the patient did not complain of chest pain. I am going to discharge the patient home. Advised her to follow up with primary care physician 1-2 weeks. Follow up with alcohol rehab per schedule. Advised to stop drinking. Activity as tolerated. Diet per home diet. Physical examined: HEENT: Normocephalic atraumatic pupils equal react to light and accommodation. Extraocular muscles intact, conjunctiva pink, oropharynx moist, no thrush, no exudate. Lymphatic: No lymphadenopathy Cardiovascular exam: S1, S2 was heard. No murmurs, rubs, gallops Lung: Clear on auscultation bilaterally, no wheeze, rale, rhonchi. GI: Abdominal soft, nondistended, nontenderness, positive bowel sounds. Extremity: No crepitus, cyanosis, edema. Pedal pulses present bilateral. Full range of motion. Skin: Normal turgor, no rash. Psych: Alert, oriented x3. Neurology: No focal deficits, cranial nerve II to XII grossly intact. This medical document was created using an electronic medical record system with [employer] direct computerized dictation system. Although this document has been carefully reviewed, there may still be some phonetic and typographical errors. These areas are purely typographical due to imperfections of the software programs, and do not reflect any compromise in the patient's medical care. Condition at Discharge: Stable Final Diagnosis/Problems List Chest pain Alcohol abuse Nausea & vomiting Elevated liver enzyme Non compliance. Discharge Disposition: Home Discharge Instruct/Medications Diet: Cardiac 2g Na,low cholest Activity: No Restrictions, As Tolerated Discharge Statement: "Patient was advised to return to the ER or call 911 if any headaches, dizziness, shortness of breath, chest pain, abdominal pain, bleeding, fevers, or worsening of medical condition. Patient was counseled about treatment plan, medications, possible side effects, patientverbalized understanding. All questions were answered to the best of my ability. This discharge took greater then 30 minutes in planning, reviewing documentation, counseling the patient, and discussing with other team members." ASSESSMENT ASSESSMENT Assessment Date of Service: Oct 15, 2024 Billing Provider: LETICIA IRVIN MD Common Visit Codes: 58269-ZXP/OBS DISCH DAY >30min LETICIA IRVIN MD Oct 15, 2024 11:46
[2024-10-15 13:00] VITALS: BP 124/79; PULSE 98; RESP 19; TEMP 98.8; O2SAT 95
--- NOTE | 2024-10-15 15:28 | ECG ---
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
--- NOTE | 2024-10-15 15:29 | ECG ---
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
== END 2024-10-15 13:50 | disposition home or self-care (01) | DRG 203 ==
LOC: ER 18:49 → TELE 10-14 04:46 → TELE-E-ADS 10-14 11:21
PROVIDERS: ADMIT Nurse Practitioner Family; ATTEND Internal Medicine
DX: R07.89 Other chest pain (principal); F10.10 Alcohol abuse, uncomplicated; R94.31 Abnormal electrocardiogram [ECG] [EKG]; Y90.9 Presence of alcohol in blood, level not specified
CPT/HCPCS: 36415; 71045; 80053; 80307; 80320; 81001; 83605; 83690; 83735; 84484; 84702; 85025; 93005; G0378; J2405

== ENCOUNTER 2024-12-18 21:07 | Inpatient (IN) | payer MEDICAID ==
[~2024-12-18] VITALS: Ht 154.9 cm; Wt 53.7 kg
[2024-12-18] MEDS: LORazepam 2MG/ML-1ML VIAL IV ONE (21:26)
[2024-12-18] MEDS: ONDANSETRON HCL 4 MG/2 ML VIAL IV ONE (21:26)
[2024-12-18] MEDS: chlordiazePOXIDE HCL 25 MG CAP PO ONE (21:26)
[2024-12-18] MEDS: PANTOPRAZOLE 40 MG/10 ML VIAL INJ IV ONE (21:26)
[2024-12-18] MEDS: SODIUM CHLORIDE 0.9% 2,000 ML IV ONE (21:27)
[2024-12-18 21:45] LABS: Basophils # (auto) 0.1 10 ^3/uL (0-0.2); Basophils % (auto) 0.8 % (0.0-2.0); Eosinophils # (auto) 0.1 10 ^3/uL (0-0.8); Eosinophils % (auto) 2.2 % (0.0-7.0); Hematocrit 39.1 % (36.0-46.0); Hemoglobin 13.2 g/dL (12.2-16.2); Lymphocytes # (auto) 2.7 10 ^3/uL (0.4-5.4); Lymphocytes % (auto) 40.5 % (10.0-50.0); Mean Corpuscular Hemoglobin 35.8 pg (28.0-32.0); Mean Corpuscular Hgb Conc. 33.8 g/dL (32.0-36.0); Mean Corpuscular Volume 105.7 fL (80.0-100.0); Monocytes # (auto) 0.6 10 ^3/uL (0-1.3); Neutrophils # (auto) 3.1 10 ^3/uL (1.6-8.6); Neutrophils % (auto) 47.5 % (37.0-80.0); Nucleated Red Blood Cells % 0.2 %; Platelet Count (auto) 317 10^3/uL (140-450); Red Cell Distribution Width 14.4 % (11.8-14.3); White Blood Cell 6.6 10^3/uL (4.4-10.8)
--- NOTE | 2024-12-18 22:07 | ED.PDOC ---
History of Present Illness HPI Comments 34 y/o F, with a history of alcohol dependence, anxiety and depression brought in by self complaining of alcohol withdrawal symptoms, characterized by shakiness, nausea, vomiting, chest pain and anxiety. Patient states she typically drinks 750 mL of hard liquor a day. She states she wanted to stop drinking, so last consumed alcohol at around 5:00 a.m. today. She denies any fever, cough, abdominal pain, diarrhea or urinary symptoms. 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 Dry mucous membranes.) Neck: Full Range of Motion, Normal Inspection Respiratory: Lungs Clear, No Accessory Muscle Use, No Respiratory Distress, Normal Breath Sounds Cardiovascular: No Edema, No JVD, Tachycardia Breast Exam: Deferred Gastrointestinal: Non Tender, Soft Genitalia: Deferred Pelvic: Deferred Rectal: Deferred Extremities: Normal inspection, Normal range of motion, Non-tender, No pedal edema Neurologic: Alert (Oriented x4), Normal Affect, Other (Extremely tremulous and anxious. Ambulatory. No gross focal deficit.) Cerebellar Function: NOT DONE Reflexes: NOT DONE Skin: Dry, Normal Color, Warm Lymphatic: NOT DONE Was a procedure done? Was a procedure done?: No EKG EKG : Pulse Rate (adult): 98 Comments Sinus rhythm, rate 98, normal intervals, normal axis, normal QRS, no ST/T changes. Differential Dx Considerations may include: Alcohol withdrawal, alcohol intoxication, electrolyte imbalance, ACS, KS, arrhythmia, anxiety, among others X-Ray, Labs, Meds, VS Vital Signs Date Time Temp Pulse Resp B/P (MAP) Pulse Ox O2 Delivery O2 Flow Rate FiO2 12/18/24 22:07 98 12/18/24 21:37 99.0 145 20 169/103 (125) 97 12/18/24 21:23 98 Lab Test 12/19/24 01:05 12/18/24 22:34 12/18/24 21:28 Range/Units Magnesium Level Pending Ammonia Pending Vitamin B12 Level Pending Folic Acid Pending Thyroid Stimulating Hormone (TSH) Pending Plasma/Serum Blood Alcohol Pending Sodium Level 141 136-145 mmol/L Potassium Level 3.7 3.5-5.1 mmol/L Chloride Level 107 98-107 mmol/L Carbon Dioxide Level 25 20-31 mmol/L Anion Gap 9 5-15 Blood Urea Nitrogen 7 L 9-23 mg/dL Creatinine 0.67 0.550-1.02 mg/dL Glomerular Filtration Rate Calc 119 >90 mL/min BUN/Creatinine Ratio 10.4 10.0-20.0 Serum Glucose 104 74-106 mg/dL Calcium Level 8.5 L 8.7-10.4 mg/dL Total Bilirubin 0.3 0.2-1.0 mg/dL Aspartate Amino Transferase (AST) 168 H 13-40 U/L Alanine Aminotransferase (ALT) 207 H 7-40 U/L Alkaline Phosphatase 109 46-116 U/L Total Protein 6.7 5.7-8.2 g/dL Albumin 4.3 3.2-4.8 g/dL Lipase 62 H 12-53 U/L White Blood Count 6.6 4.4-10.8 10^3/uL Red Blood Count 3.70 L 4.0-5.20 10^6/uL Hemoglobin 13.2 12.2-16.2 g/dL Hematocrit 39.1 36.0-46.0 % Mean Corpuscular Volume 105.7 H 80.0-100.0 fL Mean Corpuscular Hemoglobin 35.8 H 28.0-32.0 pg Mean Corpuscular Hemoglobin Concent 33.8 32.0-36.0 g/dL Red Cell Distribution Width 14.4 H 11.8-14.3 % Platelet Count 317 140-450 10^3/uL Mean Platelet Volume 8.3 6.9-10.8 fL Neutrophils (%) (Auto) 47.5 37.0-80.0 % Lymphocytes (%) (Auto) 40.5 10.0-50.0 % Monocytes (%) (Auto) 9.0 0.0-12.0 % Eosinophils (%) (Auto) 2.2 0.0-7.0 % Basophils (%) (Auto) 0.8 0.0-2.0 % Neutrophils # (Auto) 3.1 1.6-8.6 10 ^3/uL Lymphocytes # (Auto) 2.7 0.4-5.4 10 ^3/uL Monocytes # (Auto) 0.6 0-1.3 10 ^3/uL Eosinophils # (Auto) 0.1 0-0.8 10 ^3/uL Basophils # (Auto) 0.1 0-0.2 10 ^3/uL Nucleated Red Blood Cells 0.2 % Lactic Acid Level 1.8 0.4-2.0 mmol/L Troponin I High Sensitivity < 3 L </=34 ng/L B-Type Natriuretic Peptide 8.79 0-100 pg/mL Beta HCG, Quantitative 0.3 L 1.5-4.2 mIU/mL Current Medications Medications (Trade) Dose Ordered Sig/Marian Route Start Time Stop Time Status Last Admin Sodium Chloride 2,000 ml @ 1,000 mls/hr Q2H ONCE IV 12/18/24 21:30 12/18/24 23:29 DC 12/18/24 21:27 Ondansetron HCl (Zofran) 4 mg ONCE ONCE IV 12/18/24 21:30 12/18/24 21:31 DC 12/18/24 21:26 Pantoprazole Sodium (Protonix) 40 mg ONCE ONCE IV 12/18/24 21:30 12/18/24 21:31 DC 12/18/24 21:26 Lorazepam (Ativan Inj) 2 mg ONCE ONCE IV 12/18/24 21:30 12/18/24 21:31 DC 12/18/24 21:26 Chlordiazepoxide HCl (Librium Capsule) 50 mg ONCE ONCE PO 12/18/24 21:30 12/18/24 21:31 DC 12/18/24 21:26 X-Ray, Labs, Meds, VS Comment 34-year-old female with history of alcohol dependence, depression and anxiety complaining of alcohol withdrawal symptoms consisting of tremors, nausea, vomiting and chest pain Vitals remarkable for heart rate 145, BP 169/103 Exam remarkable for tremulousness and active vomiting Rhythm strip independently interpreted by me: Sinus rhythm, rate 98, no ectopy. CBC unremarkable, metabolic panel remarkable for AST 168, ALT 207, lipase elevated at 62, lactate normal, troponin and BNP negative Patient treated with the following in the ED: 1 L 0.9 normal saline IV bolus, Zofran 4 mg IV, Protonix 40 mg IV, Ativan 2 mg IV, Librium 50 mg p.o. On re-evaluation, patient states her symptoms have improved. Vitals are stable. Plan is to admit the patient for treatment of alcohol withdrawal. Time of 1ST Reevaluation: 21:48 Reevaluation 1ST: Unchanged Patient Education/Counseling: Diagnosis, Treatment Family Education/Counseling: No Family Present Additional Information - I reviewed the following notes from patient's past medical encounters: ED visit on 10/14/24 - The following tests were ordered, and results were reviewed by me: EKG, troponin, BNP, lactic acid, lipase, beta-quant, CMP, CBC, CXR - I reviewed and agreed with the following test results read by other provider: CXR - I discussed treatments and results with medical personnel Departure 1 Departure Time of Disposition: 01:00 Impression: Primary Impression: Alcohol withdrawal Qualified Codes: F10.939 - Alcohol use, unspecified with withdrawal, uns pecified Additional Impression: Chest pain Qualified Codes: R07.9 - Chest pain, unspecified Disposition: 09 ADMITTED INPATIENT Admit to: Tele Condition: Guarded e-Prescriptions No Active Prescriptions or Reported Meds Critical Care Note Critical Care Time?: Yes (45 min-critical care time only) Critical care comment: Critical care time including multiple bedside re-evaluations, review of lab and imaging studies, and discussion of the case with the admitting provider. Patient is high risk for metabolic and/or neurologic decompensation. Stability Stability form required: No Heart Score Heart Score: Heart Score Response (Comments) Value History Slightly Suspicious 0 EKG Normal 0 Age <45 0 Risk Factors No known risk factors 0 Troponin Normal limit 0 Total 0 I personally scribed for DEJA BARBOSA MD ([email or web address]) on 12/18/24 at 22:07. Electronically submitted by Leobardo Vernon [email or web address]). DEJA BARBOSA MD Dec 18, 2024 22:07
--- NOTE | 2024-12-18 22:24 | DVH ---
CHEST RADIOGRAPH Indication: cp Technique: Single frontal view of the chest was obtained Comparison: XY CHEST PORTABLE on DOS: 10/13/24 FINDINGS: Lines and Tubes: None Lungs: Clear Pleura: No effusion. No pneumothorax. Cardiomediastinal contours: Unremarkable Bones: Unremarkable IMPRESSION: Clear lungs.
[2024-12-18 23:14] LABS: Albumin 4.3 g/dL (3.2-4.8); Alkaline Phosphatase 109 U/L (46-116); Anion Gap 9 (5-15); BUN/Creatinine Ratio 10.4 (10.0-20.0); Carbon Dioxide 25 mmol/L (20-31); Chloride 107 mmol/L (98-107); Glucose 104 mg/dL (74-106); Potassium 3.7 mmol/L (3.5-5.1); Sodium 141 mmol/L (136-145)
[2024-12-18 23:15] LABS: Bilirubin, Total 0.3 mg/dL (0.2-1.0); Total Protein 6.7 g/dL (5.7-8.2)
[2024-12-18 23:16] LABS: Alanine Aminotransferase 207 U/L (7-40); Aspartate Aminotransferase 168 U/L (13-40); Blood Urea Nitrogen 7 mg/dL (9-23); Calcium 8.5 mg/dL (8.7-10.4); Lipase 62 U/L (12-53)
[2024-12-19] MEDS ORDERED: NITROGLYCERIN 0.4 MG SL TAB SL PRN (00:45)
[2024-12-19] MEDS ORDERED: DOCUSATE SOD 100 MG CAP PO PRN (00:45)
[2024-12-19] MEDS ORDERED: MORPHINE SULFATE INJ 2 MG/ml SYRG IV PRN (00:45)
[2024-12-19] MEDS: SODIUM CHLORIDE 0.9% 1,000 ML IV SCH (00:45)
[2024-12-19] MEDS ORDERED: LORazepam 2MG/ML-1ML VIAL IM PRN (01:00)
--- NOTE | 2024-12-19 01:00 | DVHHPRES ---
History of Present Illness Resident Creating Document: OSCAR SCHULTZ RESIDENT History of Present Illness GALEN GARCIA is a 34-year-old female with a history of alcohol dependence and abuse, anxiety and depression presented to the ED with the chief complaints of alcohol withdrawal symptoms since towards prior to admission. Patient reported she is a binge drinker for 1 year drinks son 50 mL of hard liquor every day, have admissions for alcohol intoxication with withdrawal in this facility. Patient wanted to stop drinking so she stopped drinking at 5:00 a.m. today then she started having withdrawal symptoms after 3 hours tremors, nausea, vomiting, sweating, loose stools which prompted her to visit ED. On an assessment patient denies fever, chest pain, difficulty breathing, seizures and other associated symptoms PMH: Alcohol dependence, anxiety, depression PSH: Denies Family history: Not significant Social history: Lives alone. Drinks sent 50 mL of hard liquor every day for 1 year but denies smoking and other drug abuse Allergies: No known allergies Home medications: None Review of Systems Constitutional: No: Fever, Chills, Sweats, Weakness, Malaise, Other Eyes: No: Pain, Vision change, Conjunctivae inflammation, Eyelid inflammation, Other, Redness ENT: No: Ear pain, Ear discharge, Nose pain, Nose discharge, Nose congestion, Mouth pain, Mouth swelling, Throat pain, Throat swelling, Other Respiratory: No: Cough, Dry, Shortness of breath, SOB with excertion, Wheezing, Hemoptysis, Pleuritic Pain, Sputum, Wheezing, Other Cardiovascular: No: Chest Pain, Palpitations, Orthopnea, Paroxysmal Noc. Dyspnea, Edema, Lt Headedness, Other Gastrointestinal: Nausea, Vomiting, Diarrhea Genitourinary: No Dysuria, No Frequency, No Incontinence, No Hematuria, No Retention, No Other Musculoskeletal: No: other, neck pain, shoulder pain, arm pain, back pain, hand pain, leg pain, foot pain Other Tremors, sweating Allergies: Coded Allergies: No Known Drug Allergy (Verified Allergy, Unknown, 10/13/24) Medications Current Medications Medications Dose Ordered Sig/Marian Route Start Time Stop Time Status Last Admin Dose Admin Sodium Chloride 10 ml Q8HR IV 12/19/24 06:00 UNV Sodium Chloride 1,000 ml @ 120 mls/hr Q8H20M IV 12/19/24 00:45 UNV Ondansetron HCl 4 mg Q4HP PRN IV 12/19/24 00:45 UNV Docusate Sodium 100 mg BIDPRN PRN PO 12/19/24 00:45 UNV Enoxaparin Sodium 40 mg DAILY SC 12/19/24 10:00 UNV Multivitamins 1 tab DAILY PO 12/19/24 10:00 UNV Acetaminophen 650 mg Q6HP PRN PO 12/19/24 00:45 UNV Nitroglycerin 0.4 mg Q5MINP PRN SL 12/19/24 00:45 UNV Morphine Sulfate 2 mg Q30M PRN IV 12/19/24 00:45 UNV Folic Acid 1 mg/ Multivitamins 10 ml/Magnesium Sulfate 8 meq/ Thiamine HCl 100 mg/Dextrose 1,013.2 ml @ 125.001 mls/hr DAILY@1800 INJ 12/19/24 18:00 UNV Lorazepam 1 mg Q5MINP PRN IM 12/19/24 01:00 UNV Lorazepam 1 mg Q6HP PRN IM 12/19/24 01:00 UNV Exam Vital Signs Vital Signs Date Time Temp Pulse Resp B/P (MAP) Pulse Ox O2 Delivery O2 Flow Rate FiO2 12/18/24 22:07 98 12/18/24 21:37 99.0 20 169/103 (125) 97 Exam Pt is lying on bed General Appearance: Drowsy, Oriented X3, Cooperative, mild distress HEENT: Atraumatic, Mucous membranes moist/pink Respiratory: Clear to auscultation, Normal air movement, No added sounds Cardiovascular: Regular rate, Normal S1, Normal S2, No murmurs Abdominal: Active bowel sounds, Soft, no distention, no tenderness Extremities: No edema, Normal pulses, No tenderness/swelling Skin: No Significant rash, except past surgical scars Neuro: Normal speech, sensorimotor deficits none Psych/Mental Status: Mental status NL, Mood NL Nurse was there as sharperone during examination Labs/Xrays Labs Test 12/18/24 22:34 12/18/24 21:28 Range/Units Sodium Level 141 136-145 mmol/L Potassium Level 3.7 3.5-5.1 mmol/L Chloride Level 107 98-107 mmol/L Carbon Dioxide Level 25 20-31 mmol/L Anion Gap 9 5-15 Blood Urea Nitrogen 7 L 9-23 mg/dL Creatinine 0.67 0.550-1.02 mg/dL Glomerular Filtration Rate Calc 119 >90 mL/min BUN/Creatinine Ratio 10.4 10.0-20.0 Serum Glucose 104 74-106 mg/dL Calcium Level 8.5 L 8.7-10.4 mg/dL Total Bilirubin 0.3 0.2-1.0 mg/dL Aspartate Amino Transferase (AST) 168 H 13-40 U/L Alanine Aminotransferase (ALT) 207 H 7-40 U/L Alkaline Phosphatase 109 46-116 U/L Total Protein 6.7 5.7-8.2 g/dL Albumin 4.3 3.2-4.8 g/dL Lipase 62 H 12-53 U/L White Blood Count 6.6 4.4-10.8 10^3/uL Red Blood Count 3.70 L 4.0-5.20 10^6/uL Hemoglobin 13.2 12.2-16.2 g/dL Hematocrit 39.1 36.0-46.0 % Mean Corpuscular Volume 105.7 H 80.0-100.0 fL Mean Corpuscular Hemoglobin 35.8 H 28.0-32.0 pg Mean Corpuscular Hemoglobin Concent 33.8 32.0-36.0 g/dL Red Cell Distribution Width 14.4 H 11.8-14.3 % Platelet Count 317 140-450 10^3/uL Mean Platelet Volume 8.3 6.9-10.8 fL Neutrophils (%) (Auto) 47.5 37.0-80.0 % Lymphocytes (%) (Auto) 40.5 10.0-50.0 % Monocytes (%) (Auto) 9.0 0.0-12.0 % Eosinophils (%) (Auto) 2.2 0.0-7.0 % Basophils (%) (Auto) 0.8 0.0-2.0 % Neutrophils # (Auto) 3.1 1.6-8.6 10 ^3/uL Lymphocytes # (Auto) 2.7 0.4-5.4 10 ^3/uL Monocytes # (Auto) 0.6 0-1.3 10 ^3/uL Eosinophils # (Auto) 0.1 0-0.8 10 ^3/uL Basophils # (Auto) 0.1 0-0.2 10 ^3/uL Nucleated Red Blood Cells 0.2 % Lactic Acid Level 1.8 0.4-2.0 mmol/L Troponin I High Sensitivity < 3 L </=34 ng/L B-Type Natriuretic Peptide 8.79 0-100 pg/mL Beta HCG, Quantitative 0.3 L 1.5-4.2 mIU/mL Assessment/Plan Assessment/Plan # alcohol withdrawal # alcohol intoxication -CIWA score 6 -given 1 dose of Librium -ordered Ativan p.r.n. -closely monitor the symptoms -ordered a banana bag -giving IVF - Librium protocol orderd # alcohol dependence -counseled regarding cessation for more than 17 minutes # anxiety # Depression without suicidal or homicidal ideation - monitor the symptoms # transaminitis likely due to alcohol -monitor for now # hypertensive urgency likely due to withdrawal symptoms -monitor for now PUD PPX: Protonix VTE PPX: Lovenox Diet: Liquid diet Goals of care discussed with the patient for more than 27 minutes: Full code status Case management discussed with Dr. Morales, patient and nurse Plan discussed with: Patient My Orders Orders - OSCAR SCHULTZ RESIDENT Procedure Category Date Status Time Admit ADMIT 12/19/24 Transmitted 00:45 Allergies BRIANNA 12/19/24 In Process 00:45 Code Status CODE 12/19/24 Transmitted 00:45 Full Liq Diet DIET 12/19/24 Transmitted Breakfast Sodium Chloride Lock PHA 12/19/24 Logged (Saline Lock Ns) 06:00 Sodium Chloride 0.9% PHA 12/19/24 Logged 00:45 Ondansetron Hcl PHA 12/19/24 Logged (Zofran) 00:45 Docusate Sodium PHA 12/19/24 Logged Capsule (Colace 00:45 Enoxaparin Sodium PHA 12/19/24 Logged (Lovenox) 10:00 Multiple Vitamin PHA 12/19/24 Logged Tablet (Mvi Tab) 10:00 Complete Blood Count LAB 12/19/24 Logged 04:00 Comprehensive LAB 12/19/24 Logged Metabolic Panel 04:00 Condition: Stable BRIANNA 12/19/24 In Process 00:45 Acetaminophen Tablet PHA 12/19/24 Logged (Tylenol Tablet) 00:45 Nitroglycerin PHA 12/19/24 Logged Sublingual (Ntrostat 00:45 Morphine Sulfate PHA 12/19/24 Logged Injection 00:45 Oxygen By Nasal RT 12/19/24 Transmitted Cannula 00:45 Stat Ekg For Chest BRIANNA 12/19/24 In Process Pain 00:45 Notify Md Of Changes BRIANNA 12/19/24 In Process From Base 00:45 Fish Processor For [facility] 12/19/24 In Process 24 Hours 00:45 Emergency Dysrhythmia [facility] 12/19/24 In Process Protocol 00:45 Rhythm Strips Once BRIANNA 12/19/24 In Process Every Shift 00:45 Folic Acid... PHA 12/19/24 Logged 18:00 Thiamine Inj PHA 12/19/24 Logged 01:00 Folic Acid Tablet PHA 12/19/24 Logged 01:00 Lorazepam 2mg/Ml Inj PHA 12/19/24 Logged (Ativan Inj) 01:00 Lorazepam 2mg/Ml Inj PHA 12/19/24 Logged (Ativan Inj) 01:00 Pantoprazole PHA 12/19/24 Logged (Protonix) 01:00 Rapid Influenza A&B LAB 12/19/24 Logged 00:49 Urinalysis LAB 12/19/24 Logged 00:49 Thyroid Stimulating LAB 12/19/24 Logged Hormone 00:49 Magnesium LAB 12/19/24 Logged 00:49 Drug Screen LAB 12/19/24 Logged 00:49 Covid19 Antigen Myah LAB 12/19/24 Logged Blood Alcohol LAB 12/19/24 Logged 00:49 Ammonia LAB 12/19/24 Logged 00:49 Folate (Folic Acid) LAB 12/19/24 Logged 00:49 Vitamin B12 LAB 12/19/24 Logged 00:49 Date of Service: Dec 19, 2024 Billing Provider: HAWA MORALES MD Common Visit Codes: [id number] INP/OBS CARE (HIGH) OSCAR SCHULTZ RESIDENT Dec 19, 2024 01:00 HAWA MORALES MD Dec 19, 2024 08:44
[2024-12-19 01:40] LABS: Blood Alcohol 68.8 mg/dL (<10); Magnesium 1.8 mg/dL (1.6-2.6)
[2024-12-19 01:45] LABS: Folate (Folic Acid) 12.6 ng/mL (>5.38)
[2024-12-19 03:02] LABS: Basophils # (auto) 0 10 ^3/uL (0-0.2); Basophils % (auto) 0.8 % (0.0-2.0); Eosinophils # (auto) 0.1 10 ^3/uL (0-0.8); Eosinophils % (auto) 1.9 % (0.0-7.0); Hematocrit 36.4 % (36.0-46.0); Hemoglobin 12.1 g/dL (12.2-16.2); Lymphocytes # (auto) 1.8 10 ^3/uL (0.4-5.4); Lymphocytes % (auto) 35.3 % (10.0-50.0); Mean Corpuscular Hemoglobin 35.5 pg (28.0-32.0); Mean Corpuscular Hgb Conc. 33.3 g/dL (32.0-36.0); Mean Corpuscular Volume 106.5 fL (80.0-100.0); Monocytes # (auto) 0.5 10 ^3/uL (0-1.3); Monocytes % (auto) 10.5 % (0.0-12.0); Neutrophils # (auto) 2.7 10 ^3/uL (1.6-8.6); Neutrophils % (auto) 51.5 % (37.0-80.0); Nucleated Red Blood Cells % 0.1 %; Platelet Count (auto) 227 10^3/uL (140-450); Red Blood Cells 3.42 10^6/uL (4.0-5.20); Red Cell Distribution Width 14.4 % (11.8-14.3); White Blood Cell 5.2 10^3/uL (4.4-10.8)
[2024-12-19 03:25] LABS: Alanine Aminotransferase 217 U/L (7-40); Albumin 4.7 g/dL (3.2-4.8); Alkaline Phosphatase 109 U/L (46-116); Anion Gap 10 (5-15); Aspartate Aminotransferase 163 U/L (13-40); BUN/Creatinine Ratio 9.2 (10.0-20.0); Blood Urea Nitrogen 6 mg/dL (9-23); Calcium 9.3 mg/dL (8.7-10.4); Carbon Dioxide 24 mmol/L (20-31); Chloride 104 mmol/L (98-107); Glucose 95 mg/dL (74-106); Potassium 3.9 mmol/L (3.5-5.1); Sodium 138 mmol/L (136-145)
[2024-12-19 03:26] LABS: Bilirubin, Total 0.5 mg/dL (0.2-1.0); Total Protein 7.3 g/dL (5.7-8.2)
[2024-12-19] MEDS: PANTOPRAZOLE 40 MG/10 ML VIAL INJ IV ONE (04:20)
[2024-12-19] MEDS: chlordiazePOXIDE HCL 25 MG CAP PO SCH (04:20)
[2024-12-19] MEDS: FOLIC ACID 1 MG TAB PO ONE (04:20)
[2024-12-19] MEDS: THIAMINE 100mg/ml INJ (200mg/2ml VIAL) IM ONE (04:22)
[2024-12-19 05:25] LABS: COVID19 ANTIGEN SOFIA FIA NEGATIVE (NEGATIVE)
[2024-12-19 05:26] LABS: Rapid Influenza A Negative (Negative); Rapid Influenza B Negative (Negative)
[2024-12-19] MEDS: SODIUM CHLOR 0.9% PF (SALINE LOCK) 10ML VIAL/SYR IV SCH (06:20)
--- NOTE | 2024-12-19 06:33 | ECG ---
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
[2024-12-19 08:00] VITALS: BP_SYST 119; BP_SYST 121; BP_DIAS 74; BP_DIAS 84; PULSE 63; PULSE 66; RESP 15; RESP 20; TEMP 98.2; TEMP 98.6; O2SAT 100; O2SAT 97
[2024-12-19] MEDS: MULTIPLE VITAMIN TAB PO SCH (09:18)
[2024-12-19] MEDS: ENOXAPARIN SOD 40 MG/0.4 ML SYRINGE SC SCH (09:18)
--- NOTE | 2024-12-19 11:47 | DVH ---
INDICATION: TRANSAMINITIS, ALCOHOLIC TECHNIQUE: Multiple real-time sonographic images of the abdomen were obtained. COMPARISON: None FINDINGS: The liver is heterogenous in echogenicity. The liver measures 16cm. No intrahepatic biliar y ductal dilatation is noted. The gallbladder wall measures 0.2 cm and is unremarkable. No gallstones or sludge is seen. The com mon duct measures 0.4 cm and is unremarkable. No pericholecystic fluid is noted. The right kidney measures 9cm. No hydronephrosis. The left kidney measures cm. No hydronephrosis. The pancreas is not well visualized due to obscuration from bowel gas. The visualized portions of the IVC and aorta are grossly unremarkable. IMPRESSION: Hepatic steatosis.
[2024-12-19 12:27] VITALS: BP 117/72; PULSE 55; RESP 16; TEMP 98.4; O2SAT 98
[2024-12-19] MEDS: LORazepam 2MG/ML-1ML VIAL IM PRN (13:55)
[2024-12-19] MEDS: ONDANSETRON HCL 4 MG/2 ML VIAL IV PRN (14:09)
[2024-12-19] MEDS: ACETAMINOPHEN 325 MG TAB PO PRN (14:14)
[2024-12-19 14:21] LABS: Urine Bacteria FEW /hpf (None Seen); Urine Blood Negative /uL (Negative); Urine Clarity Turbid (Clear); Urine Color Light-Yellow (Yellow); Urine Protein, UAD Negative (Negative); Urine Specific Gravity 1.009 (1.001-1.035); Urine Squamous Epithelial Cell MOD /hpf (<5); Urine Urobilinogen Normal (Negative); Urine WBC 1 /HPF (0-5)
[2024-12-19 14:28] LABS: Barbiturate Scree,Urine Neg (NEGATIVE); Benzodiazephine Screen, Urine Pos (NEGATIVE)
[2024-12-19 14:30] LABS: Amphetamine Screen, Urine Neg (NEGATIVE); Cannabinoid Screen, Urine Neg (NEGATIVE); Cocaine Screen, Urine Neg (NEGATIVE); Opiate Scree,Urine Neg (NEGATIVE); Phencyclidine Screen, Urine Neg (NEGATIVE)
--- NOTE | 2024-12-19 14:31 | DVHPNRES ---
Progress Note Date Seen: Dec 19, 2024 Resident Creating Document: STEPHANIE SMALLS RESIDENT Medical Necessity Reason Pt with a Central, PICC or Fol: No (RN) Subjective Review of Systems GALEN GARCIA is a 34-year-old female with a history of alcohol dependence and abuse, anxiety and depression presented to the ED with the chief complaints of alcohol withdrawal symptoms since towards prior to admission. Patient reported she is a binge drinker for 1 year drinks son 50 mL of hard liquor every day, have admissions for alcohol intoxication with withdrawal in this facility. Patient wanted to stop drinking so she stopped drinking at 5:00 a.m. today then she started having withdrawal symptoms after 3 hours tremors, nausea, vomiting, sweating, loose stools which prompted her to visit ED. On an assessment patient denies fever, chest pain, difficulty breathing, seizures and other associated symptoms. Initial lab workup revealed elevated MCV 105.7, transaminitis AST 163, ALT 217, Serum alcohol 68.8, negative for COVID-19 and B and influenza type A and B. PMH: Alcohol dependence, anxiety, depression PSH: Denies Family history: Not significant Social history: Lives alone. Drinks sent 50 mL of hard liquor every day for 1 year but denies smoking and other drug abuse Allergies: No known allergies Home medications: None Patient was seen today at the bedside. Cardiovascular- deny acute chest pain or shortness of breath or cough or palpitation Respiratory denies cough or short of breath or wheezing Gastrointestinal- denies any rectal bleeding, Musculoskeletal-denies acute joint swelling or tenderness or redness Neurological- denies acute dysarthria, dysphagia, change in vision Psychiatry- denies depression or SI or HI Skin- denies acute rash or purpura Patient was seen today for clinical evaluation. Labs and chart reviewed. Patient reported feeling tremor, anxiety, nausea, vomiting. Plan is to continue telemetry and CIWA protocol. Monitor vitals. Patient on IV banana bag. Objective vital signs Vital Sign Date Time Temp Pulse Resp B/P (MAP) Pulse Ox O2 Delivery O2 Flow Rate FiO2 12/19/24 12:27 98.4 55 16 117/72 (87) 98 98.4 12/19/24 08:00 Room Air* 0 21 Total Intake and Output 12/18/24 12/18/24 12/19/24 15:00 23:00 07:00 Intake Total 2000 ml Balance 2000 ml medications Current Medications Medications Dose Ordered Sig/Marian Route Start Time Stop Time Status Last Admin Dose Admin Sodium Chloride 10 ml Q8HR IV 12/19/24 06:00 12/19/24 14:09 10 ML Sodium Chloride 1,000 ml @ 120 mls/hr Q8H20M IV 12/19/24 00:45 12/19/24 00:45 120 MLS/HR Ondansetron HCl 4 mg Q4HP PRN IV 12/19/24 00:45 12/19/24 14:09 4 MG Docusate Sodium 100 mg BIDPRN PRN PO 12/19/24 00:45 Enoxaparin Sodium 40 mg DAILY SC 12/19/24 10:00 12/19/24 09:18 40 MG Multivitamins 1 tab DAILY PO 12/19/24 10:00 12/19/24 09:18 1 TAB Acetaminophen 650 mg Q6HP PRN PO 12/19/24 00:45 12/19/24 14:14 650 MG Nitroglycerin 0.4 mg Q5MINP PRN SL 12/19/24 00:45 Morphine Sulfate 2 mg Q30M PRN IV 12/19/24 00:45 Folic Acid 1 mg/ Multivitamins 10 ml/Magnesium Sulfate 8 meq/ Thiamine HCl 100 mg/Dextrose 1,013.2 ml @ 125.001 mls/hr DAILY@1800 INJ 12/19/24 18:00 Lorazepam 1 mg Q5MINP PRN IM 12/19/24 01:00 Lorazepam 1 mg Q6HP PRN IM 12/19/24 01:00 12/19/24 13:55 1 MG Chlordiazepoxide HCl 50 mg Q8H PO 12/19/24 01:15 12/19/24 17:16 12/19/24 09:18 50 MG Chlordiazepoxide HCl 50 mg Q12HR PO 12/20/24 10:00 12/20/24 22:01 Chlordiazepoxide HCl 25 mg Q12HR PO 12/21/24 10:00 12/21/24 22:01 Chlordiazepoxide HCl 25 mg QAM PO 12/22/24 07:00 12/22/24 07:01 Examination General examination- awake, alert oriented, conversant, patient has hand tremor HEENT- PEERLA, no acute nasal discharge Cardiovascular- S1-S2 audible, rate and rhythm regular, no murmur Respiratory- CTAB, no wheeze or rhonchi Gastrointestinal-nontender, bowel sound+. Nondistended Musculoskeletal-no acute joint swelling or tenderness or redness# Lower extremity- no leg edema Neurological- cranial nerves intact, no acute dysarthria or dysphagia Psychiatry- denies depression or SI or HI Skin- no acute rash or purpura laboratory and microbiology Laboratory Tests 12/19/24 02:38 Test 12/19/24 02:38 Range/Units Serum Glucose 95 74-106 mg/dL Problem List/Assessment/Plan Problem List/Assessment/Plan Assessment Acute alcohol withdrawal Acute alcohol intoxication Toxic encephalopathy CIWA score 25 History of alcohol abuse and dependence Tremor likely due to alcohol intoxication alcohol withdrawal PLAN Continue CIWA protocol Continue IV banana bag as prescribed Continue IV D5.45 normal saline as prescribed Continue pain medication as prescribed Continue thiamine and folic acid as prescribed Monitor vitals Continue telemetry Goals of care/advance care planning; FULL CODE; discussed with the patient >15 minutes PUD prophylaxis: Pantoprazole DVT prophylaxis: Lovenox Patient the bond underwriter to contact any family member or discussed patient's medical condition. Plan discussed with Dr. Singh , nursing staff, patient Total time spent on patient evaluation, chart review, assessment and plan, discussion discussion >31 minutes Plan discussed with: Patient Plan discussed with: Patient, Other (RN) My Orders My Orders Orders - STEPHANIE SMALLS Procedure Category Date Status Time Abdomen Limited US 12/19/24 Resulted 10:33 Date of Service: Dec 19, 2024 Billing Provider: NIKA BECKWITH MD Common Visit Codes: [id number] INP/OBS CARE(HIGH) STEPHANIE SMALLS Dec 19, 2024 14:31 NIKA BECKWITH MD Dec 25, 2024 23:09
[2024-12-19] MEDS ORDERED: IBUPROFEN 400 MG TAB PO PRN (15:00)
[2024-12-19] MEDS: FOLIC ACID 1 MG, MULTIPLE VITAMIN 10 ML, MAGNESIUM SULF SDV 50% 8 MEQ, THIAMINE INJ 100... INJ SCH (15:24)
[2024-12-19 16:45] VITALS: BP 105/64; PULSE 70; RESP 16; TEMP 99; O2SAT 99
[2024-12-19 22:00] VITALS: BP 119/87; PULSE 64; RESP 16; TEMP 98.4; O2SAT 97
[2024-12-20 00:50] VITALS: BP 126/87; PULSE 60; RESP 18; TEMP 97.9; O2SAT 96
[2024-12-20 01:00] VITALS: BP 126/87; PULSE 60; RESP 18; TEMP 97.9; O2SAT 96
[2024-12-20 07:15] LABS: Basophils # (auto) 0 10 ^3/uL (0-0.2); Eosinophils # (auto) 0.2 10 ^3/uL (0-0.8); Hemoglobin 13.1 g/dL (12.2-16.2); Lymphocytes # (auto) 1.7 10 ^3/uL (0.4-5.4); Mean Corpuscular Volume 106.4 fL (80.0-100.0); White Blood Cell 5.7 10^3/uL (4.4-10.8)
[2024-12-20 07:19] LABS: Basophils % (auto) 0.4 % (0.0-2.0); Eosinophils % (auto) 3.6 % (0.0-7.0); Hematocrit 39.2 % (36.0-46.0); Lymphocytes % (auto) 29.1 % (10.0-50.0); Mean Corpuscular Hemoglobin 35.6 pg (28.0-32.0); Mean Corpuscular Hgb Conc. 33.4 g/dL (32.0-36.0); Monocytes # (auto) 0.8 10 ^3/uL (0-1.3); Monocytes % (auto) 13.5 % (0.0-12.0); Neutrophils % (auto) 53.4 % (37.0-80.0); Nucleated Red Blood Cells % 0.3 %; Platelet Count (auto) 218 10^3/uL (140-450); Red Blood Cells 3.68 10^6/uL (4.0-5.20)
[2024-12-20 07:26] LABS: Albumin 4.5 g/dL (3.2-4.8); Alkaline Phosphatase 95 U/L (46-116); Anion Gap 12 (5-15); BUN/Creatinine Ratio 7.8 (10.0-20.0); Bilirubin, Total 0.9 mg/dL (0.2-1.0); Calcium 9.6 mg/dL (8.7-10.4); Carbon Dioxide 23 mmol/L (20-31); Chloride 104 mmol/L (98-107); Glucose 100 mg/dL (74-106); Magnesium 2.4 mg/dL (1.6-2.6); Potassium 3.5 mmol/L (3.5-5.1); Sodium 139 mmol/L (136-145)
[2024-12-20 07:32] LABS: Alanine Aminotransferase 147 U/L (7-40); Aspartate Aminotransferase 76 U/L (13-40); Blood Urea Nitrogen 6 mg/dL (9-23)
[2024-12-20 07:35] LABS: Total Protein 7.2 g/dL (5.7-8.2)
[2024-12-20 08:00] VITALS: PULSE 51; PULSE 60; RESP 19; O2SAT 98
[2024-12-20 09:00] VITALS: BP 94/56; PULSE 51; RESP 20; TEMP 98; O2SAT 96
[2024-12-20] MEDS: THIAMINE 100mg/ml INJ (200mg/2ml VIAL) IV SCH (09:37)
[2024-12-20] MEDS: PANTOPRAZOLE 40 MG/10 ML VIAL INJ IV SCH (09:37)
[2024-12-20] MEDS: chlordiazePOXIDE HCL 25 MG CAP PO SCH (09:38)
[2024-12-20] MEDS ORDERED: FOLIC ACID 1 MG in D5W 5% 50 ML INJ SCH (10:00)
[2024-12-20] MEDS: D5W/SOD CHL 0.45% 1,000 ML IV ONE (10:14)
--- NOTE | 2024-12-20 10:56 | DVHDSRES ---
Discharge Summary Date of Admission Resident Creating Document: STEPHANIE SMALLS Dec 19, 2024 at 00:45 Date of Discharge: Dec 20, 2024 Labs/Diagnostic Data: Laboratory Results Test 12/20/24 06:02 12/19/24 14:10 12/19/24 04:00 12/19/24 01:05 White Blood Count 5.7 10^3/uL (4.4-10.8) Red Blood Count 3.68 10^6/uL (4.0-5.20) Hemoglobin 13.1 g/dL (12.2-16.2) Hematocrit 39.2 % (36.0-46.0) Mean Corpuscular Volume 106.4 fL (80.0-100.0) Mean Corpuscular Hemoglobin 35.6 pg (28.0-32.0) Mean Corpuscular Hemoglobin Concent 33.4 g/dL (32.0-36.0) Red Cell Distribution Width 14.0 % (11.8-14.3) Platelet Count 218 10^3/uL (140-450) Mean Platelet Volume 8.7 fL (6.9-10.8) Neutrophils (%) (Auto) 53.4 % (37.0-80.0) Lymphocytes (%) (Auto) 29.1 % (10.0-50.0) Monocytes (%) (Auto) 13.5 % (0.0-12.0) Eosinophils (%) (Auto) 3.6 % (0.0-7.0) Basophils (%) (Auto) 0.4 % (0.0-2.0) Neutrophils # (Auto) 3.0 10 ^3/uL (1.6-8.6) Lymphocytes # (Auto) 1.7 10 ^3/uL (0.4-5.4) Monocytes # (Auto) 0.8 10 ^3/uL (0-1.3) Eosinophils # (Auto) 0.2 10 ^3/uL (0-0.8) Basophils # (Auto) 0 10 ^3/uL (0-0.2) Nucleated Red Blood Cells 0.3 % Sodium Level 139 mmol/L (136-145) Potassium Level 3.5 mmol/L (3.5-5.1) Chloride Level 104 mmol/L (98-107) Carbon Dioxide Level 23 mmol/L (20-31) Anion Gap 12 (5-15) Blood Urea Nitrogen 6 mg/dL (9-23) Creatinine 0.77 mg/dL (0.550-1.02) Glomerular Filtration Rate Calc 105 mL/min (>90) BUN/Creatinine Ratio 7.8 (10.0-20.0) Serum Glucose 100 mg/dL (74-106) Calcium Level 9.6 mg/dL (8.7-10.4) Phosphorus Level 4.0 mg/dL (2.4-5.1) Magnesium Level 2.4 mg/dL (1.6-2.6) Total Bilirubin 0.9 mg/dL (0.2-1.0) Aspartate Amino Transferase (AST) 76 U/L (13-40) Alanine Aminotransferase (ALT) 147 U/L (7-40) Alkaline Phosphatase 95 U/L (46-116) Total Protein 7.2 g/dL (5.7-8.2) Albumin 4.5 g/dL (3.2-4.8) Urine Color Light-yellow (Yellow) Urine Clarity Turbid (Clear) Urine pH 7.0 (5.0-9.0) Urine Specific [place] 1.009 (1.001-1.035) Urine Protein Negative (Negative) Urine Ketones Negative (Negative) Urine Blood Negative /uL (Negative) Urine Nitrite Negative (Negative) Urine Bilirubin Negative (Negative) Urine Urobilinogen Normal mg/dL (Negative) Urine Leukocyte Esterase Negative /uL (Negative) Urine RBC <1 /hpf (0 - 4) Urine Microscopic WBC 1 /HPF (0-5) Urine Squamous Epithelial Cells Mod /hpf (<5) Urine Bacteria Few /hpf (None Seen) Urine Glucose Normal mg/dL (Normal) Urine Opiates Screen Neg (NEGATIVE) Urine Fentanyl Screen Neg (NEGATIVE) Urine Barbiturates Screen Neg (NEGATIVE) Urine Phencyclidine Screen Neg (NEGATIVE) Urine Amphetamines Screen Neg (NEGATIVE) Urine Benzodiazepines Screen Pos (NEGATIVE) Urine Cocaine Screen Neg (NEGATIVE) Urine Cannabinoids Screen Neg (NEGATIVE) Influenza Type A Antigen Negative (Negative) Influenza Type B Antigen Negative (Negative) SARS-CoV-2 Antigen (Rapid) Negative (NEGATIVE) Ammonia 24 umol/L (11-32) Vitamin B12 Level 961 pg/mL (211-911) Folic Acid 12.60 ng/mL (>5.38) Thyroid Stimulating Hormone (TSH) 1.16 uIU/mL (0.55-4.78) Plasma/Serum Blood Alcohol 68.8 mg/dL (<10) Test 12/18/24 22:34 12/18/24 21:28 Lipase 62 U/L (12-53) Lactic Acid Level 1.8 mmol/L (0.4-2.0) Troponin I High Sensitivity < 3 ng/L (</=34) B-Type Natriuretic Peptide 8.79 pg/mL (0-100) Beta HCG, Quantitative 0.3 mIU/mL (1.5-4.2) Other Laboratory Tests 12/20/24 06:02 Brief Hx & Hospital Course: GALEN GARCIA is a 34-year-old female with a history of alcohol dependence and abuse, anxiety and depression presented to the ED with the chief complaints of alcohol withdrawal symptoms since towards prior to admission. Patient reported she is a binge drinker for 1 year drinks son 50 mL of hard liquor every day, have admissions for alcohol intoxication with withdrawal in this facility. Patient wanted to stop drinking so she stopped drinking at 5:00 a.m. today then she started having withdrawal symptoms after 3 hours tremors, nausea, vomiting, sweating, loose stools which prompted her to visit ED. On an assessment patient denies fever, chest pain, difficulty breathing, seizures and other associated symptoms. Initial lab workup revealed elevated MCV 105.7, transaminitis AST 163, ALT 217, Serum alcohol 68.8, negative for COVID-19 and B and influenza type A and B. PMH: Alcohol dependence, anxiety, depression PSH: Denies Family history: Not significant Social history: Lives alone. Drinks sent 50 mL of hard liquor every day for 1 year but denies smoking and other drug abuse Allergies: No known allergies Home medications: None Patient was seen today at the bedside. Cardiovascular- deny acute chest pain or shortness of breath or cough or palpitation Respiratory denies cough or short of breath or wheezing Gastrointestinal- denies any rectal bleeding, Musculoskeletal-denies acute joint swelling or tenderness or redness Neurological- denies acute dysarthria, dysphagia, change in vision Psychiatry- denies depression or SI or HI Skin- denies acute rash or purpura Patient was seen today for clinical evaluation. Labs and chart reviewed. Patient reported feeling tremor, anxiety, nausea, vomiting. Plan is to continue telemetry and CIWA protocol. Monitor vitals. Patient on IV banana bag. Diagnosis Acute alcohol withdrawal Acute alcohol intoxication Toxic encephalopathy History of alcohol abuse and dependence Fatty liver Transaminitis likely due to alcoholism Tremor likely due to alcohol intoxication alcohol withdrawal Anxiety Depression Discharge plan Folic acid 1 mg p.o. daily Vitamin B12 daily Patient was advised to follow up with the primary care physician in 1week No driving in next 48 hours Social service consult was done with the resources for Patient was counseled about the effect of alcoholism on health Operations or Procedures [place] [address] Ph: [phone] DIAGNOSTIC IMAGING Diagnostic Imaging Report : [id number] Signed PATIENT: GALEN GARCIA MACCT: [id number] UNIT: [id number] : 1990 LOC: OVERFLOW ROOM / BED: [address] [place] [address] AGE / SEX: 34 / F ADM STATUS: ADM IN SERVICE 1033 ORDERING PHYSICIAN: STEPHANIE SMALLS RESIDENT PROCEDURE(s): ABDL - ABDOMEN LIMITED REASON: TRANSAMINITIS, ALCOHOLIC ORDER NUMBER(s): [id number], ACCESSION NUMBER(s): [id number] INDICATION: TRANSAMINITIS, ALCOHOLIC TECHNIQUE: Multiple real-time sonographic images of the abdomen were obtained. COMPARISON: None FINDINGS: The liver is heterogenous in echogenicity. The liver measures 16cm. No intrahepatic biliary ductal dilatation is noted. The gallbladder wall measures 0.2 cm and is unremarkable. No gallstones or sludge is seen. The common duct measures 0.4 cm and is unremarkable. No pericholecystic fluid is noted. The right kidney measures 9cm. No hydronephrosis. The left kidney measures cm. No hydronephrosis. The pancreas is not well visualized due to obscuration from bowel gas. The visualized portions of the IVC and aorta are grossly unremarkable. IMPRESSION: Hepatic steatosis. ATED BY: CEM MENDOSA MD DICTATED DATE/TIME: 12/19/24 1145 SIGNED BY: CEM MENDOSA MD SIGNED DATE/TIME: 12/19/24 1145 CC: [facility] [facility] [id number] [place] [address] Ph: [phone] DIAGNOSTIC IMAGING Diagnostic Imaging Report : [id number] Signed PATIENT: GALEN GARCIA MACCT: [id number] UNIT: [id number] : 1990 LOC: ER ROOM / BED: / AGE / SEX: 34 / F ADM STATUS: REG ER SERVICE 15 ORDERING PHYSICIAN: DEJA BARBOSA MD PROCEDURE(s): CXR1 - CHEST XRAY 1 VIEW REASON: cp ORDER NUMBER(s): [id number], ACCESSION NUMBER(s): [id number] CHEST RADIOGRAPH Indication: cp Technique: Single frontal view of the chest was obtained Comparison: XY CHEST PORTABLE on DOS: 10/13/24 FINDINGS: Lines and Tubes: None Lungs: Clear Pleura: No effusion. No pneumothorax. Cardiomediastinal contours: Unremarkable Bones: Unremarkable IMPRESSION: Clear lungs. ATED BY: JESSICA MEADOWS DO DICTATED DATE/TIME: 12/18/242221 SIGNED BY: JESSICA MEADOWS DO SIGNED DATE/TIME: 12/18/242221 CC: Condition at Discharge: Stable Final Diagnosis/Problems List Acute alcohol withdrawal Acute alcohol intoxication Toxic encephalopathy History of alcohol abuse and dependence Fatty liver Transaminitis likely due to alcoholism Tremor likely due to alcohol intoxication alcohol withdrawal Anxiety Depression Discharge Disposition: Home Discharge Instruct/Medications Diet: Regular Follow Up/Referral: Patient was advised to follow up with the primary care physician in 1week No driving in next 48 hours after discharge Social service consult was done with the resources for AA Patient was counseled about the effect of alcoholism on health Medications: Folic acid 1 mg p.o. daily Vitamin B12 daily Patient was advised to follow up with the primary care physician in 1week Social service consult was done with the resources for AA Patient was counseled about the effect of alcoholism on Discharge Statement: "Patient was advised to return to the ER or call 911 if any headaches, dizziness, shortness of breath, chest pain, abdominal pain, bleeding, fevers, or worsening of medical condition. Patient was counseled about treatment plan, medications, possible side effects, patientverbalized understanding. All questions were answered to the best of my ability. This discharge took greater then 30 minutes in planning, reviewing documentation, counseling the patient, and discussing with other team members." ASSESSMENT ASSESSMENT Assessment Date of Service: Dec 20, 2024 Billing Provider: NIKA BECKWITH MD Common Visit Codes: 72924-TPI/OBS DISCH DAY >30min STEPHANIE SMALLS Dec 20, 2024 10:56 NIAK BECKWITH MD Dec 26, 2024 00:20
[2024-12-20] MEDS ORDERED: FOLI-119 PO (11:04)
[2024-12-20] MEDS ORDERED: CYAN100L PO (11:04)
[2024-12-20] MEDS ORDERED: THIAMINE HCL 100 MG TAB PO ONE (12:45)
[2024-12-20] MEDS ORDERED: MULTIPLE VITAMIN TAB PO ONE (12:45)
[2024-12-20] MEDS ORDERED: FOLIC ACID 1 MG TAB PO ONE (12:45)
[2024-12-20] MEDS ORDERED: MAGNESIUM OXIDE 400 MG TAB PO ONE (12:45)
[2024-12-20 13:30] VITALS: BP 105/67; PULSE 54; RESP 20; TEMP 98.8; O2SAT 100
[2024-12-20 15:19] VITALS: BP 105/57; PULSE 54; RESP 20; TEMP 98.8; O2SAT 100
[2024-12-21] MEDS ORDERED: chlordiazePOXIDE HCL 25 MG CAP PO SCH (10:00)
[2024-12-21] MEDS ORDERED: MULTIPLE VITAMIN TAB PO SCH (10:00)
[2024-12-21] MEDS ORDERED: FOLIC ACID 1 MG TAB PO SCH (10:00)
[2024-12-21] MEDS ORDERED: MAGNESIUM OXIDE 400 MG TAB PO SCH (10:00)
[2024-12-21] MEDS ORDERED: THIAMINE HCL 100 MG TAB PO SCH (10:00)
[2024-12-22] MEDS ORDERED: chlordiazePOXIDE HCL 25 MG CAP PO SCH (07:00)
== END 2024-12-20 16:00 | disposition home or self-care (01) | DRG 816 ==
LOC: ER 21:07 → OVERFLOW 12-19 00:45 → TELE-WESTW 12-19 23:57
PROVIDERS: ADMIT Student in an Organized Health Care Education/Training Program; ATTEND Student in an Organized Health Care Education/Training Program
DX: T51.91XA Toxic effect of unspecified alcohol, accidental (unintentional), initial encounter (principal); G92.8 Other toxic encephalopathy; F10.229 Alcohol dependence with intoxication, unspecified; F10.239 Alcohol dependence with withdrawal, unspecified; I16.0 Hypertensive urgency; Z20.822 Contact with and (suspected) exposure to COVID-19; F41.9 Anxiety disorder, unspecified; R74.01 Elevation of levels of liver transaminase levels; F32.A Depression, unspecified; Y90.3 Blood alcohol level of 60-79 mg/100 ml
CPT/HCPCS: 36415; 71045; 76705; 80053; 80307; 80320; 81001; 82140; 82607; 82746; 83605; 83690; 83735; 83880; 84100; 84443; 84484; 84702; 85025; 87081; 87426; 87804; 93005; 96361; 96374; 96375; 99291; G0378; J2405; J2470; J7060

== ENCOUNTER 2025-02-20 21:02 | Inpatient (IN) | payer MEDICAID ==
[~2025-02-20] VITALS: Ht 152.4 cm; Wt 57.0 kg
[~2025-02-20 21:02] MED LIST: CYAN100L PO; FOLI-119 PO
[2025-02-20 22:47] LABS: Basophils # (auto) 0.1 10 ^3/uL (0-0.2); Basophils % (auto) 0.6 % (0.0-2.0); Eosinophils # (auto) 0 10 ^3/uL (0-0.8); Eosinophils % (auto) 0.4 % (0.0-7.0); Hematocrit 44.6 % (36.0-46.0); Hemoglobin 15.3 g/dL (12.2-16.2); Lymphocytes # (auto) 2.4 10 ^3/uL (0.4-5.4); Lymphocytes % (auto) 24.1 % (10.0-50.0); Mean Corpuscular Hemoglobin 34.7 pg (28.0-32.0); Mean Corpuscular Hgb Conc. 34.2 g/dL (32.0-36.0); Mean Corpuscular Volume 101.4 fL (80.0-100.0); Monocytes # (auto) 0.6 10 ^3/uL (0-1.3); Monocytes % (auto) 6.5 % (0.0-12.0); Neutrophils # (auto) 6.8 10 ^3/uL (1.6-8.6); Neutrophils % (auto) 68.4 % (37.0-80.0); Platelet Count (auto) 398 10^3/uL (140-450); Red Cell Distribution Width 12.9 % (11.8-14.3); White Blood Cell 9.9 10^3/uL (4.4-10.8)
[2025-02-20 23:03] LABS: Alkaline Phosphatase 104 U/L (46-116); Anion Gap 13 (5-15); Bilirubin, Total 0.4 mg/dL (0.2-1.0); Calcium 9.8 mg/dL (8.7-10.4); Carbon Dioxide 22 mmol/L (20-31); Chloride 107 mmol/L (98-107); Glucose 100 mg/dL (74-106); Sodium 142 mmol/L (136-145)
[2025-02-20 23:09] LABS: Alanine Aminotransferase 111 U/L (7-40); Albumin 5.4 g/dL (3.2-4.8); Aspartate Aminotransferase 91 U/L (13-40); BUN/Creatinine Ratio 6.7 (10.0-20.0); Blood Urea Nitrogen < 5 mg/dL (9-23); Lipase 54 U/L (12-53); Potassium 3.4 mmol/L (3.5-5.1); Total Protein 8.9 g/dL (5.7-8.2)
[2025-02-20] MEDS: LORazepam 2MG/ML-1ML VIAL IV ONE (23:49)
[2025-02-20] MEDS: SODIUM CHLORIDE 0.9% 1,000 ML IV ONE (23:49)
[2025-02-20] MEDS: PANTOPRAZOLE 40 MG/10 ML VIAL INJ IV ONE (23:49)
[2025-02-20] MEDS: ONDANSETRON HCL 4 MG/2 ML VIAL IV ONE (23:49)
[2025-02-20] MEDS: chlordiazePOXIDE HCL 25 MG CAP PO ONE (23:50)
[2025-02-21] VITALS (7 sets, daily range): BP systolic 112–128; BP diastolic 73–93; PULSE 71–90; RESP 18–20; TEMP 97.9–98.9; O2SAT 94–98
--- NOTE | 2025-02-21 00:40 | ECG ---
[facility] Test Date: 2025-02-20 Test Time: 22:15:02 Pat Name: GALEN ACEVES Department: ER Room: 0223 Gender: F Qualitative Field Coordinator: KYM : 1990 Requested By: DEJA ANDRE Order Number: [id number] Reading MD: Dillon Gleason Measurements Intervals [place] Rate: 99 P: 30 GA: 151 QRS: -73 QRSD: 74 T: 19 QT: 376 QTc: 483 Interpretive Statements Sinus rhythm Left anterior fascicular block Borderline prolonged QT interval Electronically Signed On 02-24-2025 20:20:53 PDT by Dillon Gleason Please click the below link to view image of tracing.
--- NOTE | 2025-02-21 00:53 | ED.PDOC ---
History of Present Illness HPI Comments 35-year-old female with a history of alcohol abuse and dependence brought in by family complaining of alcohol withdrawal symptoms since around 10:00 a.m. today. Patient states her last drink was around 10:00 a.m. today. She states she typically drinks at least a bottle of hard liquor daily. Currently she states her symptoms include pressure-like chest pain, nausea, vomiting and anxiety as well as tremors. She denies any abdominal pain, diarrhea, constipation, dysuria, shortness of breath or edema. Chief Complaint: ETOH Time Seen by MD: 21:54 Allergies: Coded Allergies: No Known Drug Allergy (Verified Allergy, Unknown, 10/13/24) Home Meds Active Scripts Cyanocobalamin (VITAMIN B 12) 100 Mcg [place], 100 MCG PO DAILY for 90 Days, TREMAYNE Prov:STEPHANIE SMALLS RESIDENT 12/20/24 Folic Acid (Folic Acid) 1 Mg Tab, 1 MG PO DAILY for 90 Days, #90 TAB Prov:STEPHANIE SMALLS RESIDENT 12/20/24 Reported Medications Gabapentin (Gabapentin) 100 Mg Cap, PO 02/21/25 Hydroxyzine Hcl (Hydroxyzine Hcl) 50 Mg Tab, PO 02/21/25 Lorazepam (Lorazepam) 1 Mg Tab, 1 TAB PO BID 02/21/25 Mode of Arrival: Ambulatory Past Medical History PAST MEDICAL HISTORY: Anxiety, Depression Past Medical History (Other): Alcohol abuse/dependence Surgical History: Denies all surgeries PIPELINE INSPECTOR History: Denies all PIPELINE INSPECTOR Hx Family History Family History: Unknown Social History Smoker: Non-Smoker Alcohol: Heavy Drugs: Denies Drug Use Lives In: Home All Other Systems: Reviewed and Negative (Comprehensive systems review unobtainable due to the patient's current symptoms. She is actively vomiting and unable to answer all questions.) Physical Exam General Appearance: Moderate Distress HEENT: Other (Pupils and face symmetric. Moist mucous membranes.) Neck: Full Range of Motion, Normal Inspection Respiratory: Lungs Clear, No Accessory Muscle Use, No Respiratory Distress, Normal Breath Sounds Cardiovascular: No Edema, No JVD, Regular Rate/Rhythm Breast Exam: Deferred Gastrointestinal: Non Tender, Soft, Other (Actively vomiting) Genitalia: Deferred Pelvic: Deferred Rectal: Deferred Extremities: Normal inspection, Normal range of motion, Non-tender, No pedal edema Neurologic: Alert (Oriented x4), Normal Affect, Normal Mood, Other (Ambulatory without difficulty. Mild extremity tremors.) Cerebellar Function: NOT DONE Reflexes: NOT DONE Skin: Dry, Normal Color, Warm Lymphatic: NOT DONE Was a procedure done? Was a procedure done?: No EKG EKG : Comments Sinus rhythm, rate 99, normal AK and QRS intervals, QTC prolonged at 483, normal axis, left anterior fascicular block, nonspecific T changes. Differential Dx Considerations may include: Alcohol withdrawal, electrolyte imbalance, gastritis, pancreatitis, gastroenteritis, hypovolemia, ACS, NE, acid reflux, anxiety, peptic ulcer disease, among others X-Ray, Labs, Meds, VS Vital Signs Date Time Temp Pulse Resp B/P (MAP) Pulse Ox O2 Delivery O2 Flow Rate FiO2 02/20/25 23:46 98.3 79 19 140/107 (118) 97 98.3 02/20/25 22:15 99 02/20/25 21:50 99.0 144 22 162/109 (126) 95 99.0 Lab Test 02/20/25 23:18 02/20/25 22:23 02/20/25 22:17 Range/Units Troponin I High Sensitivity < 3 L < 3 L </=34 ng/L White Blood Count 9.9 4.4-10.8 10^3/uL Red Blood Count 4.40 4.0-5.20 10^6/uL Hemoglobin 15.3 12.2-16.2 g/dL Hematocrit 44.6 36.0-46.0 % Mean Corpuscular Volume 101.4 H 80.0-100.0 fL Mean Corpuscular Hemoglobin 34.7 H 28.0-32.0 pg Mean Corpuscular Hemoglobin Concent 34.2 32.0-36.0 g/dL Red Cell Distribution Width 12.9 11.8-14.3 % Platelet Count 398 140-450 10^3/uL Mean Platelet Volume 7.6 6.9-10.8 fL Neutrophils (%) (Auto) 68.4 37.0-80.0 % Lymphocytes (%) (Auto) 24.1 10.0-50.0 % Monocytes (%) (Auto) 6.5 0.0-12.0 % Eosinophils (%) (Auto) 0.4 0.0-7.0 % Basophils (%) (Auto) 0.6 0.0-2.0 % Neutrophils # (Auto) 6.8 1.6-8.6 10 ^3/uL Lymphocytes # (Auto) 2.4 0.4-5.4 10 ^3/uL Monocytes # (Auto) 0.6 0-1.3 10 ^3/uL Eosinophils # (Auto) 0 0-0.8 10 ^3/uL Basophils # (Auto) 0.1 0-0.2 10 ^3/uL Nucleated Red Blood Cells 0.0 % Sodium Level 142 136-145 mmol/L Potassium Level 3.4 L 3.5-5.1 mmol/L Chloride Level 107 98-107 mmol/L Carbon Dioxide Level 22 20-31 mmol/L Anion Gap 13 5-15 Blood Urea Nitrogen < 5 L 9-23 mg/dL Creatinine 0.75 0.550-1.02 mg/dL Glomerular Filtration Rate Calc 108 >90 mL/min BUN/Creatinine Ratio 6.7 L 10.0-20.0 Serum Glucose 100 74-106 mg/dL Calcium Level 9.8 8.7-10.4 mg/dL Total Bilirubin 0.4 0.2-1.0 mg/dL Aspartate Amino Transferase (AST) 91 H 13-40 U/L Alanine Aminotransferase (ALT) 111 H 7-40 U/L Alkaline Phosphatase 104 46-116 U/L B-Type Natriuretic Peptide 14.09 0-100 pg/mL Total Protein 8.9 H 5.7-8.2 g/dL Albumin 5.4 H 3.2-4.8 g/dL Lipase 54 H 12-53 U/L Beta HCG, Quantitative 0.2 L 1.5-4.2 mIU/mL POC Glucose 101 70-106 mg/dl X-Ray, Labs, Meds, VS Comment 35-year-old female with a history of alcohol dependence, prior admissions for alcohol withdrawal, anxiety and depression brought in by family complaining of recurrent alcohol withdrawal, chest pain, nausea, vomiting and tremors Vitals remarkable for heart rate 144, respiratory rate 22, BP 162/109 Exam remarkable for tachycardia, active vomiting and tremors Rhythm strip independently interpreted by me: Sinus rhythm, rate 99, no ectopy. Chest x-ray one view: Independently interpreted by me. Cardiac silhouette nor mal size, no definite infiltrate or effusion. Normal mediastinal width. Grossly normal bony thorax. No free air. No pneumothorax. CBC unremarkable. CMP remarkable for potassium 3.4, AST 91, ALT 111, lipase 54, troponin negative x2, BNP normal, UA pending, hCG negative Patient treated with the following in the ED: 1 L 0.9 normal saline IV bolus, Ativan 1 mg IV, Librium 50 mg p.o., Zofran 4 mg IV, Protonix 40 mg IV On re-evaluation, heart rate is 79 and patient's symptoms have somewhat improved. She is no longer actively vomiting and does not appear tremulous. Plan is to admit the patient for treatment of alcohol withdrawal. Time of 1ST Reevaluation: :16 Reevaluation 1ST: Improved Patient Education/Counseling: Diagnosis, Treatment Family Education/Counseling: No Family Present Departure 1 Departure Time of Disposition: :16 Impression: Primary Impression: Alcohol withdrawal Qualified Codes: F10.939 - Alcohol use, unspecified with withdrawal, unspecified Additional Impression: Acute chest pain Disposition: ADMITTED INPATIENT Admit to: [facility] Condition: Guarded Critical Care Note Critical Care Time?: No Stability Stability form required: No Heart Score Heart Score: Heart Score Response (Comments) Value History Slightly Suspicious 0 EKG Repolarization Disturb 1 Age <45 0 Risk Factors No known risk factors 0 Troponin Normal limit 0 Total 1 DEJA BARBOSA MD Feb 21, 2025 00:53
--- NOTE | 2025-02-21 01:23 | DVH ---
CHEST RADIOGRAPH Indication: cp Technique: Single frontal view of the chest was obtained COMPARISON: XY CHEST XRAY 1 VIEW on DOS: 12/18/24, XY CHEST PORTABLE on DOS: 10/13/24 FINDINGS: Lines and Tubes: None Lungs: Clear Pleura: No effusion. No pneumothorax. Cardiomediastinal contours: Unremarkable Bones: Unremarkable IMPRESSION: 1. No acute disease.
[2025-02-21] MEDS ORDERED: ONDANSETRON HCL 4 MG/2 ML VIAL IV PRN (02:45)
[2025-02-21] MEDS: SODIUM CHLORIDE 0.9% 1,000 ML IVB ONE (02:45)
[2025-02-21] MEDS: LORazepam 2MG/ML-1ML VIAL IV SCH (02:45)
[2025-02-21] MEDS: THIAMINE 100mg/ml INJ (200mg/2ml VIAL) IV ONE (02:45)
--- NOTE | 2025-02-21 02:46 | DVHHPRES ---
History of Present Illness Resident Creating Document: KAYLEIGH KRISHNAN RESIDENT History of Present Illness Patient is a 35-year-old female with past medical history of alcohol use disorder and alcohol withdrawal, who comes in due to complaints of alcohol withdrawal. According to the patient, she drinks 750 mL of cognac daily for the last 1 year, last drink was yesterday on 02/19/2025 at 10:00 a.m.. Patient notes she has had 4 episodes of vomiting, denies any blood in the vomitus. On review of systems patient is complaining of fatigue, chills, palpitations. CIWA score is 14 at the time of my assessment, patient A&O x4. Patient was noted to have an elevated lipase of 54. Patient was started on IV NS, banana bag and IV Ativan mEq, CT abdomen pelvis was ordered for the patient which showed acute appendicitis. Past Medical History Alcohol use disorder, recurrent alcohol withdrawals, anxiety, depression Past Surgical History Denies Past Social History Smoking: Denies Alcohol: Drinks 750 mL of cardiac daily for the last 1 year Drugs: Denies Allergy: Denies Review of Systems Constitutional: Yes: Chills, Malaise; No: Fever, Sweats, Weakness, Other Eyes: No: Pain, Vision change, Conjunctivae inflammation, Eyelid inflammation, Other, Redness ENT: No: Ear pain, Ear discharge, Nose pain, Nose discharge, Nose congestion, Mouth pain, Mouth swelling, Throat pain, Throat swelling, Other Respiratory: No: Cough, Dry, Shortness of breath, SOB with excertion, Wheezing, Hemoptysis, Pleuritic Pain, Sputum, Wheezing, Other Cardiovascular: Palpitations; No: Chest Pain, Orthopnea, Paroxysmal Noc. Dyspnea, Edema, Lt Headedness, Other Gastrointestinal: No: Nausea, Vomiting, Abdominal Pain, Diarrhea, Constipation, Melena, Hematochezia, Other Genitourinary: No Dysuria, No Frequency, No Incontinence, No Hematuria, No Retention, No Other Musculoskeletal: No: other, neck pain, shoulder pain, arm pain, back pain, hand pain, leg pain, foot pain Skin: No: Rash, Lesions, Jaundice, Bruising, Other Neurological: No: Weakness, Numbness, Incoordination, Change in speech, Confusion, Seizures, Other Allergies: Coded Allergies: No Known Drug Allergy (Verified Allergy, Unknown, 10/13/24) Exam Vital Signs Vital Signs Date Time Temp Pulse Resp B/P (MAP) Pulse Ox O2 Delivery O2 Flow Rate FiO2 02/20/25 23:46 98.3 79 19 140/107 (118) 97 98.3 General Appearance: Alert, Oriented X3, Cooperative, moderate distress HEENT: Atraumatic, PERRLA, EOMI, Other (I mucous membranes) Respiratory: Clear to auscultation, Normal air movement Cardiovascular: Regular rate, Normal S1, Normal S2 Abdominal: Normal bowel sounds, Soft, No tenderness Extremities: No edema, Normal pulses Skin: No breakdown, No significant lesion Neuro: Normal gait, Normal speech, Strength at 5/5 X4 ext, Normal tone, Sensation intact Psych/Mental Status: Mental status NL, Mood NL Labs/Xrays Labs Test 02/20/25 23:18 02/20/25 22:23 02/20/25 22:17 Range/Units Troponin I High Sensitivity < 3 L </=34 ng/L White Blood Count 9.9 4.4-10.8 10^3/uL Red Blood Count 4.40 4.0-5.20 10^6/uL Hemoglobin 15.3 12.2-16.2 g/dL Hematocrit 44.6 36.0-46.0 % Mean Corpuscular Volume 101.4 H 80.0-100.0 fL Mean Corpuscular Hemoglobin 34.7 H 28.0-32.0 pg Mean Corpuscular Hemoglobin Concent 34.2 32.0-36.0 g/dL Red Cell Distribution Width 12.9 11.8-14.3 % Platelet Count 398 140-450 10^3/uL Mean Platelet Volume 7.6 6.9-10.8 fL Neutrophils (%) (Auto) 68.4 37.0-80.0 % Lymphocytes (%) (Auto) 24.1 10.0-50.0 % Monocytes (%) (Auto) 6.5 0.0-12.0 % Eosinophils (%) (Auto) 0.4 0.0-7.0 % Basophils (%) (Auto) 0.6 0.0-2.0 % Neutrophils # (Auto) 6.8 1.6-8.6 10 ^3/uL Lymphocytes # (Auto) 2.4 0.4-5.4 10 ^3/uL Monocytes # (Auto) 0.6 0-1.3 10 ^3/uL Eosinophils # (Auto) 0 0-0.8 10 ^3/uL Basophils # (Auto) 0.1 0-0.2 10 ^3/uL Nucleated Red Blood Cells 0.0 % Sodium Level 142 136-145 mmol/L Potassium Level 3.4 L 3.5-5.1 mmol/L Chloride Level 107 98-107 mmol/L Carbon Dioxide Level 22 20-31 mmol/L Anion Gap 13 5-15 Blood Urea Nitrogen < 5 L 9-23 mg/dL Creatinine 0.75 0.550-1.02 mg/dL Glomerular Filtration Rate Calc 108 >90 mL/min BUN/Creatinine Ratio 6.7 L 10.0-20.0 Serum Glucose 100 74-106 mg/dL Calcium Level 9.8 8.7-10.4 mg/dL Total Bilirubin 0.4 0.2-1.0 mg/dL Aspartate Amino Transferase (AST) 91 H 13-40 U/L Alanine Aminotransferase (ALT) 111 H 7-40 U/L Alkaline Phosphatase 104 46-116 U/L B-Type Natriuretic Peptide 14.09 0-100 pg/mL Total Protein 8.9 H 5.7-8.2 g/dL Albumin 5.4 H 3.2-4.8 g/dL Lipase 54 H 12-53 U/L Beta HCG, Quantitative 0.2 L 1.5-4.2 mIU/mL POC Glucose 101 70-106 mg/dl Assessment/Plan Assessment/Plan Acute alcohol withdrawal, CIWA score 14 - IV NS - IV thiamine-100 mg - banana bag - IV lorazepam 2 mg q.2 hours scheduled for a total of 3 doses only - IV Zofran - IV Protonix Acute appendicitis without perforation Sepsis due to above - CT abdomen pelvis: Acute non perforated appendicitis. Hepatic steatosis. Probable right ovarian cyst. - IV NS 2 L bolus, IV NS at 100 cc/hour maintenance - IV ceftriaxone, IV metronidazole - surgery consulted Ruled out pancreatitis - completed CT with no findings. Mildly elevated Lipase. Probably secondary to alcohol use disorder Alcohol use disorder - counseled extensively PUD prophylaxis: protonix 40mg DVT prophylaxis: SCDs Goals of care: Full code, discussed for >16 minutes on 02/21/2025 Plan discussed with patient Plan discussed with Dr. Morales Plan discussed with: Patient, Other (RN) My Orders Orders - KAYLEIGH KRISHNAN RESIDENT Procedure Category Date Status Time Admit ADMIT 02/21/25 Transmitted 02:34 Allergies BRIANNA 02/21/25 Transmitted 02:34 Code Status CODE 02/21/25 Transmitted 02:34 Ondansetron Hcl PHA 02/21/25 Transmitted (Zofran) 02:45 Npo (Nothing By DIET 02/21/25 Transmitted Mouth) Diet Breakfast Condition: Unstable BRIANNA 02/21/25 Transmitted 02:34 Sequential BRIANNA 02/21/25 Transmitted Compression Device Notify Md Of Changes BRIANNA 02/21/25 Transmitted From Base 02:34 Banana Bag Ns PHA 02/21/25 Transmitted 18:00 Lorazepam 2mg/Ml Inj PHA 02/21/25 Transmitted (Ativan Inj) 02:45 Lactic Acid W/ Reflex LAB 02/21/25 Transmitted Order 02:34 Blood Alcohol LAB 02/21/25 Transmitted 02:34 Drug Screen LAB 02/21/25 Transmitted 02:34 Urinalysis LAB 02/21/25 Transmitted 02:34 0.9% Nacl 1 Liter PHA 02/21/25 Transmitted Bolus 02:45 Magnesium LAB 02/21/25 Transmitted 02:34 Electrocardigram EKG 02/21/25 Transmitted 02:34 Thiamine 100mg Iv Now PHA 02/21/25 Transmitted 02:45 Etoh Withdrawal BRIANNA 02/21/25 Transmitted Assessment 02:34 Ct Ab Pel Wo Con-No CT 02/21/25 Transmitted Oral Or Iv 07:00 Date of Service: Feb 21, 2025 Billing Provider: HAWA MORALES MD Common Visit Codes: [id number] INP/OBS CARE (HIGH) KAYLEIGH KRISHNAN RESIDENT Feb 21, 2025 02:46 HAWA MORALES MD Feb 22, 2025 11:42
--- NOTE | 2025-02-21 03:40 | DVH ---
Exam: CT CT AB PEL WO CON-NO ORAL OR IV History: elevated lipase Comparison Study: None Technique: Multidetector spiral CT of the abdomen was performed from lung bases to pubic symphysis. I maging was performed without IV contrast. Axial, coronal and sagittal multiplanar reformats were obta ined from the axial data set by the technologist. Radiation Dose : 1. Abdomen/Pelvis: CTDIvol 5.48 mGy, DLP 307.75 mGy*cm. Findings: Evaluation of solid organs is limited due to lack of intravenous contrast use. Lung Bases: No acute or significant lung base finding. Normal heart size. No pleural or pericardial effusion. Liver: The liver is normal in size. There is diffuse hepatic steatosis. No focal lesions. Gallbladder and Biliary Tree: The gallbladder is moderately hyperdense, possibly representing sludge. Spleen: Unremarkable Pancreas: The pancreas is grossly normal in appearance. Adrenal Glands: Unremarkable Kidneys: Kidneys are grossly normal without calculi or hydronephrosis. Bladder: Grossly unremarkable for degree of distention. Bowel: The stomach is grossly normal in appearance. Small bowel and colon are normal in caliber and d istribution. The appendix is fluid-filled and dilated, measuring up to in diameter. Mild periappendi ceal inflammatory changes are noted. Ascites: Absent Lymphadenopathy: No mesenteric, retroperitoneal or periportal lymphadenopathy. Abdominal Wall and Mesentery: Unremarkable. Vasculature: The visualized abdominal aorta is normal in size and caliber. Evaluation of abdominal a nd pelvic vessels is limited due to lack of intravenous contrast. Pelvic Organs: Near water attenuation structure, likely representing an ovarian cyst. Musculoskeletal: No aggressive focal bony lesions, acute fractures or dislocation. IMPRESSION: 1. Acute non perforated appendicitis. 2. Hepatic steatosis. 3. Probable right ovarian cyst. 4. These findings were discussed with Dr. Ma of the emergency department at 3:37 a.m. On January. Radiation optimization: All CT scans at this facility use at least one of these dose optimization cesar hniques: automated exposure control mA and/or kV adjustment per patient size (includes targeted exam s where dose is matched to clinical indication) or iterative reconstruction.
[2025-02-21 03:42] LABS: Blood Alcohol 123.6 mg/dL (<10); Magnesium 1.8 mg/dL (1.6-2.6)
[2025-02-21] MEDS: cefTRIAXone 1GM/50ML D5W 50 ML IV ONE (03:45)
[2025-02-21] MEDS: metroNIDAZOLE 500MG/100ML 100 ML IV ONE (03:45)
[2025-02-21] MEDS ORDERED: GAB100C PO (04:53)
[2025-02-21] MEDS ORDERED: LORA-1123 PO (04:53)
[2025-02-21] MEDS ORDERED: HYDR50TA69 PO (04:53)
[2025-02-21] MEDS: metroNIDAZOLE 500MG/100ML 100 ML IV SCH (06:00)
[2025-02-21 08:42] LABS: Eosinophils # (auto) 0.1 10 ^3/uL (0-0.8); Hematocrit 35.2 % (36.0-46.0); Hemoglobin 12.1 g/dL (12.2-16.2); Monocytes # (auto) 0.5 10 ^3/uL (0-1.3); Neutrophils # (auto) 4.4 10 ^3/uL (1.6-8.6)
[2025-02-21 08:45] LABS: Basophils # (auto) 0 10 ^3/uL (0-0.2); Basophils % (auto) 0.7 % (0.0-2.0); Eosinophils % (auto) 1.4 % (0.0-7.0); Lymphocytes # (auto) 2.3 10 ^3/uL (0.4-5.4); Lymphocytes % (auto) 31.1 % (10.0-50.0); Mean Corpuscular Hemoglobin 34.7 pg (28.0-32.0); Mean Corpuscular Hgb Conc. 34.4 g/dL (32.0-36.0); Monocytes % (auto) 6.4 % (0.0-12.0); Neutrophils % (auto) 60.4 % (37.0-80.0); Platelet Count (auto) 318 10^3/uL (140-450); Red Blood Cells 3.48 10^6/uL (4.0-5.20); Red Cell Distribution Width 12.8 % (11.8-14.3); White Blood Cell 7.4 10^3/uL (4.4-10.8)
[2025-02-21 08:50] LABS: Prothrombin Time 10.6 sec (9.3-11.8)
[2025-02-21 08:58] LABS: Albumin 4.2 g/dL (3.2-4.8); Alkaline Phosphatase 82 U/L (46-116); Anion Gap 12 (5-15); Bilirubin, Total 0.7 mg/dL (0.2-1.0); Carbon Dioxide 23 mmol/L (20-31); Glucose 78 mg/dL (74-106); Sodium 144 mmol/L (136-145); Total Protein 6.8 g/dL (5.7-8.2)
[2025-02-21 09:02] LABS: Alanine Aminotransferase 81 U/L (7-40); Aspartate Aminotransferase 55 U/L (13-40); BUN/Creatinine Ratio 7.2 (10.0-20.0); Blood Urea Nitrogen < 5 mg/dL (9-23); Calcium 8.2 mg/dL (8.7-10.4); Chloride 109 mmol/L (98-107); Potassium 3.3 mmol/L (3.5-5.1)
[2025-02-21] MEDS: LORazepam 2MG/ML-1ML VIAL IV PRN (09:39)
[2025-02-21] MEDS: ONDANSETRON HCL 4 MG/2 ML VIAL IV ONE (09:40)
[2025-02-21] MEDS: cefTRIAXone 1GM/50ML D5W 50 ML IV SCH (09:41)
[2025-02-21] MEDS: PANTOPRAZOLE 40 MG/10 ML VIAL INJ IV ONE (09:41)
[2025-02-21] MEDS: POTASSIUM CHLORIDE 40 MEQ, LIDOCAINE 1% (LOCAL ANESTH.) 4 ML in SODIUM CHL 0.9% 250 ML IV ONE (13:19)
[2025-02-21] MEDS: SODIUM CHLORIDE 0.9% 1,000 ML IV SCH (13:45)
--- NOTE | 2025-02-21 14:06 | DVHPN2 ---
Progress Note Date Seen: Feb 21, 2025 Medical Necessity Reason Pt with a Central, PICC or Fol: No Objective vital signs Vital Sign Date Time Temp Pulse Resp B/P (MAP) Pulse Ox O2 Delivery O2 Flow Rate FiO2 02/21/25 09:00 98.7 78 20 125/81 (96) 97 98.7 02/21/25 04:12 Room Air* 0 21 Total Intake and Output 02/20/25 02/20/25 02/21/25 15:00 23:00 07:00 Intake Total 2000 ml Output Total 0 ml Balance 2000 ml medications Current Medications Medications Dose Ordered Sig/Marian Route Start Time Stop Time Status Last Admin Dose Admin Sodium Chloride 1,000 ml @ 100 mls/hr Q10H IV 02/21/25 03:45 Ceftriaxone Sodium 50 ml @ 100 mls/hr DAILY@09 IV 02/21/25 09:00 02/21/25 09:41 100 MLS/HR Metronidazole 100 ml @ 100 mls/hr Q8HR IV 02/21/25 06:00 02/21/25 06:00 100 MLS/HR Lorazepam 1 mg Q2HP PRN IV 02/21/25 08:00 02/21/25 09:39 1 MG Pantoprazole Sodium 40 mg DAILY IV 02/22/25 10:00 Ondansetron HCl 4 mg Q4HPRN PRN IV 02/21/25 12:00 Folic Acid 1 mg/ Magnesium Sulfate 8 meq/ Multivitamins 10 ml/Thiamine HCl 100 mg/Sodium Chloride 1,013.2 ml @ 126.247 mls/hr DAILY@1800 INJ 02/21/25 18:00 02/21/25 22:00 laboratory and microbiology Laboratory Tests 02/21/25 08:14 Test 02/21/25 08:14 Range/Units Serum Glucose 78 74-106 mg/dL Problem List/Assessment/Plan Problem List/Assessment/Plan 02/21/25ALCOHOL ABUSER WITH VERY LARGE CONSUMPTION PRIOR TO ADMISSION, ABDOMEN SOFT, NON DISTENDED, ESSENTIALLY NON TENDER DOES HAVE A NORMAL WBC, NO BILIRUBIN ELEV, SLIGHT ELEV LFT'S. DOUBT APPENDICITIS SUGGESTED BY CT SCAN, MOST LIKELY ALCOHOL RELATED GASTRITIS. NO INDICATION FOR SURGICAL INTERVENTION AT THIS TIME Plan discussed with: Patient MARCELLA LAURA MD Feb 21, 2025 14:06
[2025-02-21] MEDS: FOLIC ACID 1 MG, MAGNESIUM SULF SDV 50% 8 MEQ, MULTIPLE VITAMIN 10 ML, THIAMINE INJ 100... INJ SCH (18:00)
[2025-02-21] MEDS ORDERED: FOLIC ACID 1 MG, MAGNESIUM SULF SDV 50% 8 MEQ, MULTIPLE VITAMIN 10 ML, THIAMINE INJ 100... INJ SCH (18:00)
--- NOTE | 2025-02-21 18:01 | DVHPNRES ---
Progress Note Date Seen: Feb 21, 2025 Resident Creating Document: NICO SYED KAYLA Has the PT tested + for MRSA If YES, has PT been informed?: No Medical Necessity Reason Pt with a Central, PICC or Fol: No Subjective Review of Systems Patient is a 35-year-old female with past medical history of alcohol use disorder and alcohol withdrawal, who comes in due to complaints of alcohol withdrawal. According to the patient, she drinks 750 mL of cognac daily for the last 1 year, last drink was yesterday on 02/19/2025 at 10:00 a.m.. Patient notes she has had 4 episodes of vomiting, denies any blood in the vomitus. On review of systems patient is complaining of fatigue, chills, palpitations. CIWA score is 14 at the time of my assessment, patient A&O x4. Patient was noted to have an elevated lipase of 54. Patient was started on IV NS, banana bag and IV Ativan mEq, CT abdomen pelvis was ordered for the patient which showed acute appendicitis. Past Medical History Alcohol use disorder, recurrent alcohol withdrawals, anxiety, depression Patient seen and examined at the bedside. Patient is still complaining of anxiety, body shaking and headache. Patient reports: Feels better Changes from previous H/P or p: Changes Objective vital signs Vital Sign Date Time Temp Pulse Resp B/P (MAP) Pulse Ox O2 Delivery O2 Flow Rate FiO2 02/21/25 13:00 98.9 90 20 128/84 (99) 95 98.9 02/21/25 08:00 Room Air* 0 21 Total Intake and Output 02/20/25 02/20/25 02/21/25 15:00 23:00 07:00 Intake Total 2000 ml Output Total 0 ml Balance 2000 ml medications Current Medications Medications Dose Ordered Sig/Marian Route Start Time Stop Time Status Last Admin Dose Admin Sodium Chloride 1,000 ml @ 100 mls/hr Q10H IV 02/21/25 03:45 Ceftriaxone Sodium 50 ml @ 100 mls/hr DAILY@09 IV 02/21/25 09:00 02/21/25 09:41 100 MLS/HR Metronidazole 100 ml @ 100 mls/hr Q8HR IV 02/21/25 06:00 02/21/25 14:43 100 MLS/HR Lorazepam 1 mg Q2HP PRN IV 02/21/25 08:00 02/21/25 09:39 1 MG Pantoprazole Sodium 40 mg DAILY IV 02/22/25 10:00 Ondansetron HCl 4 mg Q4HPRN PRN IV 02/21/25 12:00 Folic Acid 1 mg/ Magnesium Sulfate 8 meq/ Multivitamins 10 ml/Thiamine HCl 100 mg/Sodium Chloride 1,013.2 ml @ 126.247 mls/hr DAILY@1800 INJ 02/21/25 18:00 02/21/25 22:00 Examination General Appearance: Alert, Oriented X3, Cooperative, No acute distress HEENT: Atraumatic, PERRLA, EOMI, Mucous membrane moist/pink Respiratory: Clear to auscultation, Normal air movement Cardiovascular: Regular rate, Normal S1, Normal S2, No murmurs, no chest wall tenderness Abdominal: Normal bowel sounds, Soft, No tenderness, No hepatospenomegaly, No masses Extremities: No clubbing, No cyanosis, No edema, Normal pulses, No tenderness/swelling Skin: No rashes, No breakdown, No significant lesion Neuro: Normal gait, Normal speech, Strength at 5/5 X4 ext, Normal tone, Sensation intact, Cranial nerves 3-12 NL, Reflexes 2+ Psych/Mental Status: Mental status NL, Mood NL laboratory and microbiology Laboratory Tests 02/21/25 08:14 Test 02/21/25 08:14 Range/Units Serum Glucose 78 74-106 mg/dL Labs and/or images reviewed: Labs reviewed by me, Image(s) reviewed by me Problem List/Assessment/Plan Problem List/Assessment/Plan Alcohol withdrawal Alcohol use disorder CIWA score, 10 Ativan p.r.n. Banana bag and IV team in [facility], [facility] Consulted manager social work for providing alcohol addiction sources Acute appendicitis with a perforation Sepsis, likely due to above Ruled out pancreatitis Hepatic steatosis Right ovarian cyst CT abdominopelvic shows acute non perforated appendicitis with right ovarian cyst and fatty liver Consulted surgery, recommended medical management Empiric antibiotic Rocephin and Flagyl IV fluid Pain management DIET: Clear liquid GI PROPHYLAXIS:: Protonix CODE STATUS: Goal of care discussed for more than 18 minutes, full code DISPOSITION: Med/surge Patient's status and plan discussed with the patient. Case discussed with Dr. Singh. Plan discussed with: Patient, Other (RN) My Orders My Orders Orders - NICO SYED RESDIENT Procedure Category Date Status Time Lorazepam 2mg/Ml Inj PHA 02/21/25 In Process (Ativan Inj) 08:00 Ondansetron Hcl PHA 02/21/25 In Process (Zofran) 12:00 Pantoprazole PHA 02/22/25 In Process (Protonix) 10:00 * Chronic Care Nurse CONS 02/21/25 Transmitted Consult Clear Liq Diet DIET 02/21/25 Transmitted Dinner NICO SYED RESDIENT Feb 21, 2025 18:01
[2025-02-21] MEDS: ONDANSETRON HCL 4 MG/2 ML VIAL IV PRN (18:06)
[2025-02-21 18:18] LABS: Urine Bacteria FEW /hpf (None Seen); Urine Blood Negative /uL (Negative); Urine Budding Yeast OCCASIONAL /hpf (None Seen); Urine Clarity Turbid (Clear); Urine Color Light-Yellow (Yellow); Urine Mucus FEW (None Seen); Urine Protein, UAD Negative (Negative); Urine Specific Gravity 1.017 (1.001-1.035); Urine Squamous Epithelial Cell FEW /hpf (<5); Urine Urobilinogen Normal (Negative); Urine WBC 3 /HPF (0-5); Urine pH 5.5 (5.0-9.0)
[2025-02-21 18:32] LABS: Benzodiazephine Screen, Urine Pos (NEGATIVE)
[2025-02-21 18:35] LABS: Amphetamine Screen, Urine Neg (NEGATIVE); Barbiturate Scree,Urine Neg (NEGATIVE); Cannabinoid Screen, Urine Neg (NEGATIVE); Cocaine Screen, Urine Neg (NEGATIVE); Opiate Scree,Urine Neg (NEGATIVE); Phencyclidine Screen, Urine Neg (NEGATIVE)
[2025-02-22] VITALS (8 sets, daily range): BP systolic 107–126; BP diastolic 49–81; PULSE 62–105; RESP 18–19; TEMP 97.6–99.1; O2SAT 93–98
[2025-02-22 08:20] LABS: Basophils # (auto) 0 10 ^3/uL (0-0.2); Eosinophils # (auto) 0.1 10 ^3/uL (0-0.8); Lymphocytes # (auto) 1.4 10 ^3/uL (0.4-5.4); Mean Corpuscular Volume 101.3 fL (80.0-100.0); Monocytes # (auto) 0.4 10 ^3/uL (0-1.3); Monocytes % (auto) 5.9 % (0.0-12.0); Nucleated Red Blood Cells % 0.1 %
[2025-02-22 08:23] LABS: Basophils % (auto) 0.6 % (0.0-2.0); Eosinophils % (auto) 1.6 % (0.0-7.0); Hematocrit 37.9 % (36.0-46.0); Hemoglobin 13.1 g/dL (12.2-16.2); Lymphocytes % (auto) 18.9 % (10.0-50.0); Mean Corpuscular Hgb Conc. 34.5 g/dL (32.0-36.0); Neutrophils # (auto) 5.3 10 ^3/uL (1.6-8.6); Platelet Count (auto) 318 10^3/uL (140-450); Red Blood Cells 3.74 10^6/uL (4.0-5.20); Red Cell Distribution Width 13.1 % (11.8-14.3); White Blood Cell 7.3 10^3/uL (4.4-10.8)
[2025-02-22 08:26] LABS: Albumin 4.6 g/dL (3.2-4.8); Alkaline Phosphatase 93 U/L (46-116); Anion Gap 17 (5-15); BUN/Creatinine Ratio 11.7 (10.0-20.0); Calcium 9.5 mg/dL (8.7-10.4); Chloride 103 mmol/L (98-107); Glucose 96 mg/dL (74-106); Sodium 138 mmol/L (136-145); Total Protein 7.4 g/dL (5.7-8.2)
[2025-02-22 08:27] LABS: Bilirubin, Total 0.9 mg/dL (0.2-1.0)
[2025-02-22 08:33] LABS: Alanine Aminotransferase 72 U/L (7-40); Aspartate Aminotransferase 46 U/L (13-40); Blood Urea Nitrogen 9 mg/dL (9-23); Carbon Dioxide 18 mmol/L (20-31); Potassium 3.4 mmol/L (3.5-5.1)
[2025-02-22] MEDS: PANTOPRAZOLE 40 MG/10 ML VIAL INJ IV SCH (10:42)
--- NOTE | 2025-02-22 13:15 | DVHINCON2 ---
GI Consult Consult Note GI consult note Date of Consultation: 02/22/2025 Chief Complaint: Rule out gastritis Referring Physician: Dr. Okeefe H&P: 35-year-old female presented to ER with complaints of alcohol withdrawal. Patient admits to drinking 750 mL of cognac daily for the last one year. Patient presented with nausea and vomiting. No hematemesis. Denies abdominal pain. No history of GERD. Bowel movement one day ago. No melena or red blood in stool Past Medical History: Alcohol use disorder, recurrent alcohol withdrawals, anxiety, depression Past Surgical History: Denies Social History: NO smoking, heavy drinking ETOH Family History: Noncontributory Review of Systems: Constitutional: no fever, chill, weight loss HEENT: no eye pain, no hearing loss, no oral lesion, no scleral icterus Heart: no chest pain, no chest pressure Lung: no cough, no dyspnea with exertion Abdomen: see HPI Physical exam: General: NAD, AAOX3 Chest: lung segundo clear to auscultation Heart: RRR, no murmur Abdomen: non-distended, no tenderness to palpation, +BS Labs: Labs Test 02/22/25 07:44 02/21/25 18:00 02/21/25 08:14 02/21/25 02:57 Range/Units White Blood Count 7.3 4.4-10.8 10^3/uL Red Blood Count 3.74 L 4.0-5.20 10^6/uL Hemoglobin 13.1 12.2-16.2 g/dL Hematocrit 37.9 36.0-46.0 % Mean Corpuscular Volume 101.3 H 80.0-100.0 fL Mean Corpuscular Hemoglobin 35.0 H 28.0-32.0 pg Mean Corpuscular Hemoglobin Concent 34.5 32.0-36.0 g/dL Red Cell Distribution Width 13.1 11.8-14.3 % Platelet Count 318 140-450 10^3/uL Mean Platelet Volume 7.8 6.9-10.8 fL Neutrophils (%) (Auto) 73.0 37.0-80.0 % Lymphocytes (%) (Auto) 18.9 10.0-50.0 % Monocytes (%) (Auto) 5.9 0.0-12.0 % Eosinophils (%) (Auto) 1.6 0.0-7.0 % Basophils (%) (Auto) 0.6 0.0-2.0 % Neutrophils # (Auto) 5.3 1.6-8.6 10 ^3/uL Lymphocytes # (Auto) 1.4 0.4-5.4 10 ^3/uL Monocytes # (Auto) 0.4 0-1.3 10 ^3/uL Eosinophils # (Auto) 0.1 0-0.8 10 ^3/uL Basophils # (Auto) 0 0-0.2 10 ^3/uL Nucleated Red Blood Cells 0.1 % Sodium Level 138 # 136-145 mmol/L Potassium Level 3.4 L 3.5-5.1 mmol/L Chloride Level 103 98-107 mmol/L Carbon Dioxide Level 18 L 20-31 mmol/L Anion Gap 17 H 5-15 Blood Urea Nitrogen 9 9-23 mg/dL Creatinine 0.77 0.550-1.02 mg/dL Glomerular Filtration Rate Calc 104 >90 mL/min BUN/Creatinine Ratio 11.7 10.0-20.0 Serum Glucose 96 74-106 mg/dL Calcium Level 9.5 8.7-10.4 mg/dL Total Bilirubin 0.9 0.2-1.0 mg/dL Aspartate Amino Transferase (AST) 46 H 13-40 U/L Alanine Aminotransferase (ALT) 72 H 7-40 U/L Alkaline Phosphatase 93 46-116 U/L Total Protein 7.4 5.7-8.2 g/dL Albumin 4.6 3.2-4.8 g/dL Urine Color Light-yellow Yellow Urine Clarity Turbid H Clear Urine pH 5.5 5.0-9.0 Urine Specific [place] 1.017 1.001-1.035 Urine Protein Negative Negative Urine Ketones 1+ H Negative Urine Blood Negative Negative /uL Urine Nitrite 1+ H Negative Urine Bilirubin Negative Negative Urine Urobilinogen Normal Negative mg/dL Urine Leukocyte Esterase 1+ Negative /uL Urine RBC 3 0 - 4 /hpf Urine Microscopic WBC 3 0-5 /HPF Urine Squamous Epithelial Cells Few <5 /hpf Urine Bacteria Few H None Seen /hpf Urine Mucus Few None Seen Urine Yeast (Budding) Occasional None Seen /hpf Urine Glucose Normal Normal mg/dL Urine Opiates Screen Neg NEGATIVE Urine Fentanyl Screen Neg NEGATIVE Urine Barbiturates Screen Neg NEGATIVE Urine Phencyclidine Screen Neg NEGATIVE Urine Amphetamines Screen Neg NEGATIVE Urine Benzodiazepines Screen Pos NEGATIVE Urine Cocaine Screen Neg NEGATIVE Urine Cannabinoids Screen Neg NEGATIVE Prothrombin Time 10.6 9.3-11.8 sec Prothrombin Time INR 1.00 0.9-1.15 Activated Partial Thromboplast Time 28.0 24.5-34.5 SEC Lactic Acid Level 1.9 0.4-2.0 mmol/L Magnesium Level 1.8 1.6-2.6 mg/dL Plasma/Serum Blood Alcohol 123.6 H <10 mg/dL Test 02/20/25 23:18 02/20/25 22:23 02/20/25 22:17 Range/Units Troponin I High Sensitivity < 3 L </=34 ng/L B-Type Natriuretic Peptide 14.09 0-100 pg/mL Lipase 54 H 12-53 U/L Beta HCG, Quantitative 0.2 L 1.5-4.2 mIU/mL POC Glucose 101 70-106 mg/dl Imaging: CT abdomen pelvis IMPRESSION: 1. Acute non perforated appendicitis. 2. Hepatic steatosis. 3. Probable right ovarian cyst. Assessment: Alcohol withdrawal Alcohol use disorder Hepatic steatosis Appendicitis per CT Plan: Discussed with Dr. Figueredo Hepatitis panel Liver ultrasound Ultrasound right lower quadrant DC alcohol use discussed extensively Supportive care recommended at this time We will continue to follow the patient Thank you for this consult Date of Service: Feb 22, 2025 Billing Provider: NIRANJAN BISHOP Common Visit Codes: CONSULT ONLY Consultation Codes: [id number] CONSULT <60MIN NIRANJAN BISHOP Feb 22, 2025 13:15
[2025-02-22 14:09] LABS: Hepatitis B Core Total AB Negative (Negative)
[2025-02-22 15:11] LABS: Hepatitis A Total Antibody Negative (Negative); Hepatitis B Surface Antibody Positive (Negative); Hepatitis B Surface Antigen Negative (Negative)
[2025-02-22 15:12] LABS: Hepatitis C Antibody Negative (Negative)
--- NOTE | 2025-02-22 15:19 | DVH ---
INDICATION: Ultrasound abdomen limited ; elevated LFT's TECHNIQUE: Multiple real-time sonographic images of the abdomen limited were obtained. COMPARISON: US ABDOMEN LIMITED on DOS: 12/19/24 FINDINGS: Increased parenchymal echogenicity suggesting steatosis. The liver measures 13.57 cm. No i ntrahepatic biliary ductal dilatation is noted. The gallbladder wall measures 0.22 cm and is unremarkable. No gallstones or sludge is seen. The co mmon duct measures 0.36 cm and is unremarkable. No pericholecystic fluid is noted. Negative sonograp hic Hernadez's sign The pancreas is not well visualized due to obscuration from bowel gas. The visualized portions of the IVC and aorta are grossly unremarkable. IMPRESSION: 1. 13.57 cm liver with changes suggesting steatosis 2. Gallstones negative ultrasound Hernadez's sign 3. Right kidney measures 9.87 cm no hydronephrosis
--- NOTE | 2025-02-22 15:34 | DVH ---
ABDOMINAL ULTRASOUND CLINICAL HISTORY: appendicitis TECHNIQUE: Multiple grayscale and color Doppler ultrasound images were obtained of the abdomen. WID: COMPARISON: US ABDOMEN LIMITED on DOS: 02/22/25, US ABDOMEN LIMITED on DOS: 12/19/24 FINDINGS /impression: Nonvisualization of the appendix. No fluid collection or lymphadenopathy in the right lower quadrant.
--- NOTE | 2025-02-22 19:28 | DVHPNRES ---
Progress Note Date Seen: Feb 22, 2025 Resident Creating Document: NICO SYED KAYLA Has the PT tested + for MRSA If YES, has PT been informed?: No Medical Necessity Reason Pt with a Central, PICC or Fol: No Subjective Review of Systems Patient seen and examined at bedside. Patient is still complaining of headache and anxiety. Patient reports: Feels better Changes from previous H/P or p: Changes Objective vital signs Vital Sign Date Time Temp Pulse Resp B/P (MAP) Pulse Ox O2 Delivery O2 Flow Rate FiO2 02/22/25 17:00 99.1 105 18 119/81 (94) 94 99.1 02/22/25 08:00 Room Air* 0 21 Total Intake and Output 02/21/25 02/21/25 02/22/25 15:00 23:00 07:00 Intake Total 50 ml 200 ml 625 ml Balance 50 ml 200 ml 625 ml medications Current Medications Medications Dose Ordered Sig/Marian Route Start Time Stop Time Status Last Admin Dose Admin Sodium Chloride 1,000 ml @ 100 mls/hr Q10H IV 02/21/25 03:45 02/22/25 09:45 100 MLS/HR Ceftriaxone Sodium 50 ml @ 100 mls/hr DAILY@09 IV 02/21/25 09:00 02/22/25 10:42 100 MLS/HR Metronidazole 100 ml @ 100 mls/hr Q8HR IV 02/21/25 06:00 02/22/25 14:00 100 MLS/HR Lorazepam 1 mg Q2HP PRN IV 02/21/25 08:00 02/22/25 14:42 1 MG Pantoprazole Sodium 40 mg DAILY IV 02/22/25 10:00 02/22/25 10:42 40 MG Ondansetron HCl 4 mg Q4HPRN PRN IV 02/21/25 12:00 02/21/25 18:06 4 MG Examination General Appearance: Alert, Oriented X3, Cooperative, No acute distress HEENT: Atraumatic, PERRLA, EOMI, Mucous membrane moist/pink Respiratory: Clear to auscultation, Normal air movement Cardiovascular: Regular rate, Normal S1, Normal S2, No murmurs, no chest wall tenderness Abdominal: Normal bowel sounds, Soft, No tenderness, No hepatospenomegaly, No masses Extremities: No clubbing, No cyanosis, No edema, Normal pulses, No tenderness/swelling Skin: No rashes, No breakdown, No significant lesion Neuro: Normal gait, Normal speech, Strength at 5/5 X4 ext, Normal tone, Sensation intact, Cranial nerves 3-12 NL, Reflexes 2+ Psych/Mental Status: Mental status NL, Mood NL laboratory and microbiology Laboratory Tests 02/22/25 07:44 Test 02/22/25 07:44 Range/Units Serum Glucose 96 74-106 mg/dL Labs and/or images reviewed: Labs reviewed by me, Image(s) reviewed by me Problem List/Assessment/Plan Problem List/Assessment/Plan Alcohol withdrawal Alcohol use disorder CIWA score, 10 Ativan p.r.n. Banana bag and IV team in [facility], [place] Consulted social work assistant for providing alcohol addiction sources Acute appendicitis with a perforation Sepsis, likely due to above Ruled out pancreatitis Hepatic steatosis Right ovarian cyst CT abdominopelvic shows acute non perforated appendicitis with right ovarian cyst and fatty liver Consulted surgery, recommended medical management GI consulted, recommended medical management Empiric antibiotic Rocephin and Flagyl IV fluid Pain management DIET: Clear liquid GI PROPHYLAXIS:: Protonix CODE STATUS: Goal of care discussed for more than 18 minutes, full code DISPOSITION: Med/surge Patient's status and plan discussed with the patient. Case discussed with Dr. Singh. Hospital course: Patient was admitted at the line of alcohol withdrawal, with CIWA scores 14 upon admission. Patient was given Ativan, banana bag, vitamin B1, and IV fluid. CT scan shows acute appendicitis, patient was given empiric antibiotic of Rocephin and Flagyl. Ultrasound showed, no fluid collection or lymphadenopathy in the right lower quadrant. Surgery and GI consulted, recommended medical management. Patient was counseled in detail for alcohol cessation, and outreach and education social worker was consulted to provide resources for alcohol addiction. Outpatient plan: Follow up with the PCP within 1 week after discharge Diagnosis: Alcohol withdrawal,, CIWA 14 upon admission Alcohol use disorder Acute appendicitis Sepsis, likely due to above Ruled out pancreatitis Hepatic steatosis Right ovarian cyst Gastritis, likely due to alcohol use disorder Hepatic steatosis, likely due to alcohol use disorder Ruled out ACS Ruled out appendicitis Hypokalemia Transaminitis, likely due to alcohol use disorder Asymptomatic bacteriuria Plan discussed with: Patient, Other (RN) My Orders My Orders Orders - NICO SYED RESDIENT Procedure Category Date Status Time Full Liq Diet DIET 02/22/25 Transmitted Lunch NICO SYED RESDIENT Feb 22, 2025 19:28
[2025-02-23 01:00] VITALS: BP 120/77; PULSE 76; RESP 18; TEMP 98.8; O2SAT 95
[2025-02-23 05:00] VITALS: BP 119/74; PULSE 70; RESP 18; TEMP 98.1; O2SAT 93
[2025-02-23 07:17] LABS: Basophils # (auto) 0 10 ^3/uL (0-0.2); Basophils % (auto) 0.4 % (0.0-2.0); Eosinophils # (auto) 0.2 10 ^3/uL (0-0.8); Lymphocytes # (auto) 1.6 10 ^3/uL (0.4-5.4); Neutrophils # (auto) 4.9 10 ^3/uL (1.6-8.6); Nucleated Red Blood Cells % 0.1 %
[2025-02-23 07:21] LABS: Eosinophils % (auto) 2.8 % (0.0-7.0); Hematocrit 38.3 % (36.0-46.0); Hemoglobin 13.1 g/dL (12.2-16.2); Lymphocytes % (auto) 22.6 % (10.0-50.0); Mean Corpuscular Hgb Conc. 34.3 g/dL (32.0-36.0); Monocytes # (auto) 0.5 10 ^3/uL (0-1.3); Monocytes % (auto) 6.5 % (0.0-12.0); Neutrophils % (auto) 67.7 % (37.0-80.0); Platelet Count (auto) 298 10^3/uL (140-450); Red Blood Cells 3.75 10^6/uL (4.0-5.20); Red Cell Distribution Width 13.1 % (11.8-14.3); White Blood Cell 7.2 10^3/uL (4.4-10.8)
[2025-02-23 07:41] LABS: Albumin 4.3 g/dL (3.2-4.8); Alkaline Phosphatase 87 U/L (46-116); BUN/Creatinine Ratio 7.6 (10.0-20.0); Bilirubin, Total 0.5 mg/dL (0.2-1.0); Calcium 9.1 mg/dL (8.7-10.4); Chloride 106 mmol/L (98-107); Glucose 86 mg/dL (74-106); Potassium 3.6 mmol/L (3.5-5.1); Sodium 138 mmol/L (136-145)
[2025-02-23 07:45] LABS: Alanine Aminotransferase 58 U/L (7-40); Aspartate Aminotransferase 51 U/L (13-40); Blood Urea Nitrogen 6 mg/dL (9-23)
[2025-02-23 07:49] LABS: Anion Gap 13 (5-15)
[2025-02-23 07:50] LABS: Carbon Dioxide 19 mmol/L (20-31)
[2025-02-23 08:00] VITALS: PULSE 62; RESP 16; O2SAT 97
[2025-02-23 09:10] VITALS: BP 122/82; PULSE 62; RESP 16; TEMP 98.6; O2SAT 97
[2025-02-23] MEDS ORDERED: OMNIPAQUE 12mg/ml 500ml ORAL SOLUTION PO ONE (09:18)
--- NOTE | 2025-02-23 14:50 | DVHDS2 ---
Discharge Summary Date of Admission Feb 21, 2025 at 02:34 Date of Discharge: Feb 23, 2025 Labs/Diagnostic Data: Laboratory Results Test 02/23/25 06:32 02/22/25 07:44 02/21/25 18:00 02/21/25 08:14 White Blood Count 7.2 10^3/uL (4.4-10.8) Red Blood Count 3.75 10^6/uL (4.0-5.20) Hemoglobin 13.1 g/dL (12.2-16.2) Hematocrit 38.3 % (36.0-46.0) Mean Corpuscular Volume 102.0 fL (80.0-100.0) Mean Corpuscular Hemoglobin 35.0 pg (28.0-32.0) Mean Corpuscular Hemoglobin Concent 34.3 g/dL (32.0-36.0) Red Cell Distribution Width 13.1 % (11.8-14.3) Platelet Count 298 10^3/uL (140-450) Mean Platelet Volume 7.7 fL (6.9-10.8) Neutrophils (%) (Auto) 67.7 % (37.0-80.0) Lymphocytes (%) (Auto) 22.6 % (10.0-50.0) Monocytes (%) (Auto) 6.5 % (0.0-12.0) Eosinophils (%) (Auto) 2.8 % (0.0-7.0) Basophils (%) (Auto) 0.4 % (0.0-2.0) Neutrophils # (Auto) 4.9 10 ^3/uL (1.6-8.6) Lymphocytes # (Auto) 1.6 10 ^3/uL (0.4-5.4) Monocytes # (Auto) 0.5 10 ^3/uL (0-1.3) Eosinophils # (Auto) 0.2 10 ^3/uL (0-0.8) Basophils # (Auto) 0 10 ^3/uL (0-0.2) Nucleated Red Blood Cells 0.1 % Sodium Level 138 mmol/L (136-145) Potassium Level 3.6 mmol/L (3.5-5.1) Chloride Level 106 mmol/L (98-107) Carbon Dioxide Level 19 mmol/L (20-31) Anion Gap 13 (5-15) Blood Urea Nitrogen 6 mg/dL (9-23) Creatinine 0.79 mg/dL (0.550-1.02) Glomerular Filtration Rate Calc 101 mL/min (>90) BUN/Creatinine Ratio 7.6 (10.0-20.0) Serum Glucose 86 mg/dL (74-106) Calcium Level 9.1 mg/dL (8.7-10.4) Total Bilirubin 0.5 mg/dL (0.2-1.0) Aspartate Amino Transferase (AST) 51 U/L (13-40) Alanine Aminotransferase (ALT) 58 U/L (7-40) Alkaline Phosphatase 87 U/L (46-116) Total Protein 7.0 g/dL (5.7-8.2) Albumin 4.3 g/dL (3.2-4.8) Hepatitis A Antibody Total Negative (Negative) Hepatitis B Surface Antigen Negative (Negative) Hepatitis B Surface Antibody Positive (Negative) Hepatitis B Core Total Antibody Negative (Negative) Hepatitis C Antibody Negative (Negative) Urine Color Light-yellow (Yellow) Urine Clarity Turbid (Clear) Urine pH 5.5 (5.0-9.0) Urine Specific Bascom 1.017 (1.001-1.035) Urine Protein Negative (Negative) Urine Ketones 1+ (Negative) Urine Blood Negative /uL (Negative) Urine Nitrite 1+ (Negative) Urine Bilirubin Negative (Negative) Urine Urobilinogen Normal mg/dL (Negative) Urine Leukocyte Esterase 1+ /uL (Negative) Urine RBC 3 /hpf (0 - 4) Urine Microscopic WBC 3 /HPF (0-5) Urine Squamous Epithelial Cells Few /hpf (<5) Urine Bacteria Few /hpf (None Seen) Urine Mucus Few (None Seen) Urine Yeast (Budding) Occasional /hpf (None Urine Glucose Normal mg/dL (Normal) Urine Opiates Screen Neg (NEGATIVE) Urine Fentanyl Screen Neg (NEGATIVE) Urine Barbiturates Screen Neg (NEGATIVE) Urine Phencyclidine Screen Neg (NEGATIVE) Urine Amphetamines Screen Neg (NEGATIVE) Urine Benzodiazepines Screen Pos (NEGATIVE) Urine Cocaine Screen Neg (NEGATIVE) Urine Cannabinoids Screen Neg (NEGATIVE) Prothrombin Time 10.6 sec (9.3-11.8) Prothrombin Time INR 1.00 (0.9-1.15) Activated Partial Thromboplast Time 28.0 SEC (24.5-34.5) Test 02/21/25 02:57 02/20/25 23:18 02/20/25 22:23 02/20/25 22:17 Lactic Acid Level 1.9 mmol/L (0.4-2.0) Magnesium Level 1.8 mg/dL (1.6-2.6) Plasma/Serum Blood Alcohol 123.6 mg/dL (<10) Troponin I High Sensitivity < 3 ng/L (</=34) B-Type Natriuretic Peptide 14.09 pg/mL (0-100) Lipase 54 U/L (12-53) Beta HCG, Quantitative 0.2 mIU/mL (1.5-4.2) POC Glucose 101 mg/dl (70-106) Other Laboratory Tests 02/23/25 06:32 Brief Hx & Hospital Course: Alcohol withdrawal, resolved Alcohol use disorder Acute appendicitis, ruled out sirs without end-organ damage due to above tachycardia resolved Tachypnea resolved Ruled out pancreatitis Hepatic steatosis Right ovarian cyst Gastritis, likely due to alcohol use disorder Hepatic steatosis, likely due to alcohol use disorder Ruled out ACS Hypokalemia Transaminitis, likely due to alcohol use disorder Asymptomatic bacteriuria stop and do not take any benzodiazepines, i.e. Ativan/ lorazepam/Xanax alcohol addiction resources delivered bedside. strict alcohol abstinence counselled daily multivitamin Primary OTC vitamin B1/thiamine 100 mg daily for 30 days OTC folate 1 mg daily for 30 days Follow up with the PCP within 1 week after discharge. PCP to evaluate safety for naltrexone prescription Condition at Discharge: Fair Final Diagnosis/Problems List Alcohol withdrawal, resolved Alcohol use disorder Acute appendicitis, ruled out sirs without end-organ damage due to above tachycardia resolved Tachypnea resolved Ruled out pancreatitis Hepatic steatosis Right ovarian cyst Gastritis, likely due to alcohol use disorder Hepatic steatosis, likely due to alcohol use disorder Ruled out ACS Hypokalemia Transaminitis, likely due to alcohol use disorder Asymptomatic bacteriuria Discharge Disposition: Home Discharge Instruct/Medications Diet: Regular Activity: No Restrictions, As Tolerated Follow Up/Referral: See discharge instructions below Medications: See discharge instructions below Discharge Statement: "Patient was advised to return to the ER or call 911 if any headaches, dizziness, shortness of breath, chest pain, abdominal pain, bleeding, fevers, or worsening of medical condition. Patient was counseled about treatment plan, medications, possible side effects, patientverbalized understanding. All questions were answered to the best of my ability. This discharge took greater then 30 minutes in planning, reviewing documentation, counseling the patient, and discussing with other team members." Date of Service: Feb 23, 2025 Billing Provider: NIKA BECKWITH MD Common Visit Codes: 51039-HIM/OBS DISCH DAY >30min NIKA BECKWITH MD Feb 23, 2025 14:50
[2025-02-23 15:19] VITALS: BP 127/84; PULSE 75; RESP 20; TEMP 98.6; O2SAT 98
--- NOTE | 2025-02-23 20:20 | DVHPN2 ---
Progress Note - Dictate Date Seen: Feb 23, 2025 (Late entry, patient was seen at 8:00 a.m.) Has the PT tested + for MRSA If YES, has PT been informed?: No Medical Necessity Reason Pt with a Central, PICC or Fol: No Subjective Patient was seen at bedside, sleeping comfortably No new GI complaints, she denies any abdominal pain There is no nausea vomiting or fever vital signs Vital Sign Date Time Temp Pulse Resp B/P (MAP) Pulse Ox O2 Delivery O2 Flow Rate FiO2 02/23/25 15:19 98.6 75 20 98 02/23/25 09:10 122/82 (95) 02/23/25 08:00 Room Air* 0 21 Total Intake and Output 02/22/25 02/22/25 02/23/25 15:00 23:00 07:00 Intake Total 240 ml 2900 ml Balance 240 ml 2900 ml objective General: NAD, AAOX3 Chest: lung segundo clear to auscultation Heart: RRR, no murmur Abdomen: non-distended, no tenderness to palpation, +BS Ext no c/c/e laboratory and microbiology Laboratory Tests 02/23/25 06:32 Test 02/23/25 06:32 Range/Units Serum Glucose 86 74-106 mg/dL Problems(with codes): (1) Abnormal finding on GI tract imaging (2) Acute chest pain (3) Alcohol withdrawal (4) Elevated liver enzymes (5) Nausea & vomiting (6) Alcohol abuse Prognosis Assessment plan patient has been evaluated by surgical consult and there was no clear-cut evidence of appendicitis Appendix ultrasound did not visualize the appendix but there were no db appendiceal inflammatory changes WBCs normal and patient is afebrile; patient is on PPI and Carafate I recommended a possible repeat CT with re-evaluation of the appendix area however the patient refused another CT and wanted a discharged home patient may have colonic wall and appendiceal wall edema likely related to her alcohol intake and fluid overload Advance diet as tolerated Continue clinical observation Discharge planning was initiated - alcohol addiction resources delivered bedside. strict alcohol abstinence counselled - daily multivitamin -Primary OTC vitamin B1/thiamine 100 mg daily for 30 days -OTC folate 1 mg daily for 30 days -Follow up with the PCP within 1 week after discharge. PCP to evaluate safety for naltrexone prescription Plan discussed with: Patient, Other (Nurse Elpidio) JAQUAN DEMARCO MD Feb 23, 2025 20:20
== END 2025-02-23 15:40 | disposition home or self-care (01) | DRG 775 ==
LOC: ER 21:02 → OVERFLOW 02-21 02:34 → CENTRAL 02-21 04:05
PROVIDERS: ADMIT Student in an Organized Health Care Education/Training Program; ATTEND Emergency Medicine
DX: F10.239 Alcohol dependence with withdrawal, unspecified (principal); R65.10 Systemic inflammatory response syndrome (SIRS) of non-infectious origin without acute organ dysfunction; K76.0 Fatty (change of) liver, not elsewhere classified; K29.20 Alcoholic gastritis without bleeding; E87.6 Hypokalemia; R74.8 Abnormal levels of other serum enzymes; F41.9 Anxiety disorder, unspecified; Y90.6 Blood alcohol level of 120-199 mg/100 ml; N83.201 Unspecified ovarian cyst, right side; R74.01 Elevation of levels of liver transaminase levels; R82.71 Bacteriuria; F32.A Depression, unspecified; Z79.899 Other long term (current) drug therapy
CPT/HCPCS: 36415; 71045; 74176; 76705; 80053; 80307; 80320; 81001; 82962; 83605; 83690; 83735; 83880; 84484; 84702; 85025; 85610; 85730; 86704; 86706; 86708; 86803; 87340; 93005; 96361; 96374; 96375; G0378; J2003; J2405; J2470; J3490